=== PATIENT | female | born 1950 | race Caucasian/White ===

== ENCOUNTER → 2018-07-28 07:53 | Outpatient (CLI) | payer MEDICARE, SELFPAY ==
[2018-07-28 10:03] LABS: Alanine Aminotransferase 17 IU/L (9-52); Aspartate Aminotransferase 13 IU/L (14-36); Cholesterol 163 mg/dL (140-199); HDL Cholesterol 55 mg/dL (40-60); LDL Cholesterol Calculated 69 mg/dL (<100); Triglycerides 193 mg/dL (35-150)
[2018-07-28 10:30] LABS: TSH w/ Reflex to FT4 1.44 uIU/mL (0.47-4.68)
[2018-07-30 14:12] LABS: BUN Creatinine Ratio 18.8 (6-22); Blood Urea Nitrogen 15 mg/dL (7-17); Calcium 9.6 mg/dL (8.4-10.2); Carbon Dioxide 27 mmol/L (22-32); Chloride 98 mmol/L (98-107); Estimated Glomerular Filt Rate > 60.0 mL/min (>60); Glucose 104 mg/dL (80-110); HEMOLYSIS 18 (0-50); Potassium 3.7 mmol/L (3.4-5.1); Sodium 138 mmol/L (137-145)
== END ==
PROVIDERS: PCP Internal Medicine; Visit Provider Internal Medicine
DX: E78.2 Mixed hyperlipidemia (principal); F32.9 Major depressive disorder, single episode, unspecified
CPT/HCPCS: 36415; 80048; 80061; 84443; 84450; 84460

== ENCOUNTER → 2019-03-22 10:56 | Outpatient (CLI) | payer MEDICARE, SELFPAY ==
--- NOTE | 2019-03-22 | DI.MRI.S_ITS ---
PROCEDURE: MR LUMBAR SPINE WO CON INDICATIONS: Lumbago with sciatica, right side TECHNIQUE: Noncontrast sagittal T1 spin echo and T2 fast echo, coronal T2, sagittal STIR, axial T1 and T2 fast spin echo through the lumbar spine. COMPARISON: [facility], MR, MR LUMBAR SPINE WITHOUT CONTRAST, 08/07/2008, 19:30. [facility] [place], CR, XR LUMBAR SPINE WITH OLBIQUES PLUS FLEXION EXTENSION, 03/18/2019, 11:51. FINDINGS: Image quality: Excellent. Alignment and Curvature: There is loss of normal lumbar lordosis. There is mild diffuse leftward curvature of the lumbar spine. There is mild grade 1 retrolisthesis of L1 on L2, L2 on L3, L4 and L5, and L5 on S1. Bone Marrow: Marrow is of normal overall signal. No acute vertebral body compression fractures. Moderate reactive signal within the endplates adjacent to the L4-L5 and L5-S1 intervertebral discs. Mild reactive signal within the endplates adjacent to the L1-L2, L2-L3, and L3-L4 vertebral discs. Posterior L3 hemangioma. Spinal Cord: Conus medullaris terminates at the L1-L2 disc space level. Visualized cord demonstrates normal signal and size. Paraspinous Soft Tissues: No paravertebral masses. L1-L2: Moderate disc height loss and desiccation. Moderate diffuse disc bulge. Mild facet and ligament flavum hypertrophy. Mild epidural lipomatosis. Increased, mild canal stenosis. No foraminal stenosis. L2-L3: Moderate disc height loss and desiccation. Mild diffuse disc bulge. Mild facet and ligamentum flavum hypertrophy bilaterally. Mild epidural lipomatosis. Increased, mild canal stenosis. No foraminal stenosis. L3-L4: Mild disc height loss. Moderate disc desiccation. Mild diffuse disc bulge. Mild epidural lipomatosis. Mild facet and ligamentum flavum hypertrophy. Increased, mild canal stenosis. Increased, mild bilateral foraminal stenosis. L4-L5: Severe disc height loss and desiccation. Moderate diffuse disc bulge/osteophyte. Status post right hemilaminotomy, as before. Mild facet and ligament flavum hypertrophy. No significant canal stenosis. Mild bilateral foraminal stenosis. No change. L5-S1: Moderate disc height loss and desiccation. Moderate diffuse disc bulge. Mild facet hypertrophy bilaterally. Findings suggestive of left-sided hemilaminotomy. Mild bilateral facet hypertrophy. Mild canal stenosis. Increased, moderate subarticular foraminal stenosis bilaterally. IMPRESSION: 1. Multilevel degenerative disc and facet disease, as well as ligamentum flavum hypertrophy and epidural lipomatosis. 2. Mild multilevel canal stenoses. 3. Ultra level foraminal stenoses, worst at L5-S1 bilaterally where there are moderate foraminal stenoses present. Dictated by: Jong Kirkpatrick M.D. on 03/22/2019 at 12:04 Approved by: Jong Kirkpatrick M.D. on 03/22/2019 at 12:09
== END ==
PROVIDERS: PCP Internal Medicine; Visit Provider Physical Medicine & Rehabilitation Pain Medicine
DX: M51.16 Intervertebral disc disorders with radiculopathy, lumbar region (principal); M51.17 Intervertebral disc disorders with radiculopathy, lumbosacral region; M48.061 Spinal stenosis, lumbar region without neurogenic claudication; M48.07 Spinal stenosis, lumbosacral region; E88.2 Lipomatosis, not elsewhere classified
CPT/HCPCS: 72148

== ENCOUNTER 2019-12-09 16:44 | Emergency (ER) | payer MEDICARE, SELFPAY ==
[2019-12-09 16:57] VITALS: BP 185/82; PULSE 81; RESP 16; TEMP 36.9; O2SAT 99; BMI 38.0
[2019-12-09 17:06] VITALS: PULSE 73; O2SAT 97
[2019-12-09 17:07] VITALS: BP 174/78; PULSE 74; O2SAT 97
--- NOTE | 2019-12-09 17:27 | DI.US.S_ITS ---
PROCEDURE: US PERIPH VENOUS LOW EXTREM RT INDICATIONS: pain TECHNIQUE: Real-time imaging, as well as color and pulse Doppler interrogation, were performed of the lower extremity deep veins from the inguinal ligament to the popliteal fossa. COMPARISON: None. FINDINGS: The common femoral, femoral and popliteal veins are normally compressible, and free of intraluminal thrombus. Color and pulse Doppler demonstrate normal phasic intraluminal flow. There is normal augmentation response to distal compression maneuver. IMPRESSION: No sonographic evidence of deep venous thrombosis. Dictated by: Jose Rashid M.D. on 12/09/2019 at 18:13 Approved by: Jose Rashid M.D. on 12/09/2019 at 18:13
[2019-12-09 17:30] VITALS: BP 170/73; PULSE 71; O2SAT 97
[2019-12-09] MEDS: ACETAMINOPHEN 325 MG TABLET 650 MG PO (17:32)
[2019-12-09 18:00] VITALS: BP 176/79; PULSE 72; O2SAT 98
--- NOTE | 2019-12-09 18:56 | ED.EXTPRO ---
HPI - Extremity Problem General Chief complaint: Extremity Problem,Nontraumatic Stated complaint: RIGHT LEG PAIN Time Seen by Provider: 12/09/19 17:04 Source: patient Mode of arrival: Ambulatory Limitations: no limitations History of Present Illness HPI Narrative: Patient is 69-year-old female who presents with right leg pain ongoing since September. She says she it initially injured it while walking. Everyone kept thinking it was from her back she has chronic back pain she has been on prednisone a few times it has not helped. She does have longstanding prescription of Mentcle which he says usually lasts about 9 months however she has gone through a bottle in 2 months based on her knee. She is in physical therapy he was using a cane but now it has gotten worse and she now uses a walker. She has pain right around her right knee laterally and posteriorly. She has pain in her calf whenever she dorsi flexes. She denies any chest pain or shortness of breath. Related Data Home Medications Medication Instructions Recorded Confirmed albuterol sulfate [Ventolin HFA] 2 puff INH #0 10/29/16 atorvastatin [Lipitor] 20 mg PO HS #0 10/29/16 budesonide-formoterol [Symbicort] 1 inh INH BID #0 10/29/16 fluticasone furoate-vilanterol 1 puff INH #0 10/29/16 [Breo Ellipta] levocetirizine 5 mg PO QDAY #0 10/29/16 montelukast 10 mg PO QDAY #0 10/29/16 omeprazole 40 mg #0 10/29/16 theophylline 100 mg PO BID #0 10/29/16 triamterene-hydrochlorothiazid 1 cap PO QDAY #0 10/29/16 [Dyazide] Previous Rx's Medication Instructions Recorded prednisone 40 mg PO QDAY #14 tab 10/29/16 hydrocodone-acetaminophen [Mentcle] 1 tab PO Q6H PRN #10 tab 12/09/19 Allergies Allergy/AdvReac Type Severity Reaction Status Date / Time aspirin [ASPIRIN] Allergy Unknown Unverified 06/21/17 12:46 egg [EGG] Allergy Unknown Unverified 06/21/17 12:46 Penicillins [PENICILLINS] Allergy Unknown Unverified 06/21/17 12:46 shellfish derived Allergy Unknown Unverified 06/21/17 12:46 [SHELLFISH DERIVED] Review of Systems Review of Systems Narrative: GENERAL: Denies chills, fatigue, malaise, fever, sweats, travel HEENT: Denies sinus pain, ear pain, sore throat, difficulty swallowing, neck pain RESPIRATORY: Denies dyspnea, cough, wheezing, hemoptysis, sputum. CARDIOVASCULAR: Denies chest pain, palpitations, orthopnea, edema GASTROINTESTINAL: Denies nausea, vomiting, abdominal pain, diarrhea, constipation, melena. : Denies dysuria, frequency, incontinence, hematuria, urinary retention, flank pain. MUSCULOSKELETAL: See HPI SKIN: No rash, no erythema, no pruritus NEUROLOGIC: Denies weakness, dizziness, headache, numbness, change in speech, confusion PSYCHIATRIC: No concerning psychosocial issues. 12 point review of systems is negative except for those stated above and HPI Patient History Social History Smoking Status: Never smoker Smoking Status: Never smoker alcohol intake frequency: 0-2 drinks per day Substance Use Type: does not use Exam Initial Vital Signs Initial Vital Signs: Vital Signs Temperature 98.4 F 12/09/19 16:57 Pulse Rate 81 12/09/19 16:57 Respiratory Rate 16 12/09/19 16:57 Blood Pressure 185/82 H 12/09/19 16:57 Pulse Oximetry 99 12/09/19 16:57 GENERAL: Well-appearing, well-nourished and in no acute distress. HEENT: Head atraumatic,EOMI, pupils reactive, face symmetric, moist mucous membranes CARDIOVASCULAR: Regular rate and rhythm without murmurs, rubs or gallops. RESPIRATORY: Breath sounds equal bilaterally, no wheezes rales or rhonchi. ABDOMEN: Soft, nontender. Normoactive bowel sounds all 4 quadrants. No guarding or rebound. EXTREMITIES: Normal range of motion, no clubbing or edema. Neurovascularly intact Right knee is stable no significant calf swelling or erythema. NEUROLOGICAL: Alert and oriented x4. SKIN: Warm, dry, no laceration, no petechiae, no rashes or lesions. Course Orders Ordered: ED Orders 12/09/19 17:27 perip venous low extrem rt Stat Discontinued Medications Acetaminophen (Tylenol) 650 mg PO NOW ONE Stop: 12/09/19 17:28 Last Admin: 12/09/19 17:32 Dose: 650 mg Documented by: MMINOR Vital Signs Vital signs: Vital Signs - 8 hr 12/09/19 16:57 12/09/19 17:06 12/09/19 17:07 Temperature 98.4 F Pulse Rate 81 73 74 Respiratory Rate 16 Blood Pressure 185/82 H 174/78 H Pulse Oximetry 99 97 97 12/09/19 17:30 12/09/19 18:00 Temperature Pulse Rate 71 72 Respiratory Rate Blood Pressure 170/73 H 176/79 H Pulse Oximetry 97 98 MDM - Extremity (Nontraumatic) Imaging Data US - DVT: Radiologist's Impression: PROCEDURE: US PERIPH VENOUS LOW EXTREM RT INDICATIONS: pain TECHNIQUE: Real-time imaging, as well as color and pulse Doppler interrogation, were performed of the lower extremity deep veins from the inguinal ligament to the popliteal fossa. COMPARISON: None. FINDINGS: The common femoral, femoral and popliteal veins are normally compressible, and free of intraluminal thrombus. Color and pulse Doppler demonstrate normal phasic intraluminal flow. There is normal augmentation response to distal compression maneuver. IMPRESSION: No sonographic evidence of deep venous thrombosis. Dictated by: Jose Rashid M.D. on 12/09/2019 at 18:13 Approved by: Jose Rashid M.D. on 12/09/2019 at 18:13 [facility] Narrative Medical decision making narrative: Patient is negative for DVT. At this time it does not appear to be back issues, no DVT. Recommend outpatient MRI. Patient is given a small prescription for hydrocodone and will require refill by her PCP Discharge Plan Departure Patient Disposition: Home Clinical Impression: Strain of right knee Qualifiers: Encounter type: initial encounter Qualified Code(s): S86.911A - Strain of unspecified muscle(s) and tendon(s) at lower leg level, right leg, initial encounter Discharge Date/Time: 12/09/19 19:11 Instructions: DI for Knee Sprain Activity Restrictions/Additional Instructions: *You have been diagnosed with right knee strain *What to do: At this time I recommend that he get an outpatient MRI of the your knee. *Continue to take medications as directed Mentcle 1 tablet every 6 hours if needed for severe pain *Follow up with your primary care provider in 2-3 days *Return to ER if you should have increasing pain weakness numbness tingling shortness of breath or any new, worsening or concerning symptoms Prescriptions: New hydrocodone-acetaminophen [Mentcle] 5-325 mg tablet 1 tab PO Q6H PRN (Reason: pain) Qty: 10 RF: 0 No Action fluticasone furoate-vilanterol [Breo Ellipta] 200 MCG/25 MCG blister with device 1 puff INH Qty: 0 RF: 0 omeprazole 40 MG capsule,delayed release(DR/EC) 40 mg Qty: 0 RF: 0 montelukast 10 MG tablet 10 mg PO QDAY Qty: 0 RF: 0 albuterol sulfate [Ventolin HFA] 90 MCG/PUFF HFA aerosol inhaler 2 puff INH Qty: 0 RF: 0 levocetirizine 5 MG tablet 5 mg PO QDAY Qty: 0 RF: 0 atorvastatin [Lipitor] 20 MG tablet 20 mg PO HS Qty: 0 RF: 0 theophylline 100 MG tablet extended release 12 hr 100 mg PO BID Qty: 0 RF: 0 triamterene-hydrochlorothiazid [Dyazide] 37.5 MG/25 MG capsule 1 cap PO QDAY Qty: 0 RF: 0 budesonide-formoterol [Symbicort] 160 MCG/4.5 MCG HFA aerosol inhaler 1 inh INH BID Qty: 0 RF: 0 prednisone 20 MG tablet 40 mg PO QDAY Qty: 14 RF: 0 Referrals: Rosalie Lassiter MD [Primary Care Provider] -
== END 2019-12-09 19:11 | disposition home or self-care (01) ==
PROVIDERS: Emergency Provider Emergency Medicine; PCP Internal Medicine
DX: S86.911A Strain of unspecified muscle(s) and tendon(s) at lower leg level, right leg, initial encounter (principal)
CPT/HCPCS: 93971; 99283

== ENCOUNTER → 2019-12-13 08:41 | Outpatient (CLI) | payer MEDICARE, SELFPAY ==
[2019-12-13 09:53] LABS: Erythrocyte Sedimentation Rate 6 MM/HR (0-20)
[2019-12-13 10:00] LABS: Alanine Aminotransferase 13 IU/L (<35); Albumin 4.5 g/dL (3.5-5.0); Albumin Globulin Ratio 1.6 (1.0-2.8); Alkaline Phosphatase 53 U/L (38-126); Aspartate Aminotransferase 18 IU/L (14-36); BUN Creatinine Ratio 24.7 (6-22); Bilirubin Total 0.6 mg/dL (0.2-1.3); Blood Urea Nitrogen 18 mg/dL (7-17); C-Reactive Protein Quant < 0.5 mg/dL (<1.0); Calcium 9.5 mg/dL (8.4-10.2); Carbon Dioxide 33 mmol/L (22-32); Chloride 99 mmol/L (98-107); Cholesterol 151 mg/dL (140-199); Creatine Kinase 33 U/L (30-135); Estimated Glomerular Filt Rate > 60.0 mL/min (>60); Globulin 2.9 g/dL (1.7-4.1); Glucose 102 mg/dL (80-110); HDL Cholesterol 54 mg/dL (40-60); HEMOLYSIS < 15 (0-50); LDL Cholesterol Calculated 61 mg/dL (<100); Potassium 3.3 mmol/L (3.4-5.1); Sodium 138 mmol/L (137-145); Total Protein 7.4 g/dL (6.3-8.2); Triglycerides 178 mg/dL (35-150)
== END ==
PROVIDERS: PCP Internal Medicine; Referring Provider Internal Medicine; Visit Provider Internal Medicine
DX: M79.604 Pain in right leg (principal); E78.2 Mixed hyperlipidemia; M25.561 Pain in right knee
CPT/HCPCS: 36415; 80053; 80061; 82550; 85651; 86140

== ENCOUNTER → 2019-12-18 17:19 | Outpatient (CLI) | payer MEDICARE, SELFPAY ==
--- NOTE | 2019-12-18 | DI.MRI.S_ITS ---
PROCEDURE: MR KNEE RT WO CON INDICATIONS: Pain in right knee TECHNIQUE: Noncontrast sagittal PD fast spin echo and T2 fast spin echo with fat saturation, sagittal 3-D FLASH with fat saturation; coronal T1 spin echo and PD fast spin echo with fat saturation, and axial PD fast spin echo with fat saturation through the knee. COMPARISON: [facility] [place], CR, XR KNEE ARTHRITIC SERIES RT, 12/09/2019, 15:58. FINDINGS: Image quality: There is mild motion artifact. Menisci: There is mild degenerative signal within the body of the medial meniscus extending to the inferior articular surface compatible with mild degenerative tearing. The lateral meniscus also demonstrates mild degenerative signal primarily within the body which extends to the inferior articular surface and free edge compatible with mild degenerative tearing. The meniscal root ligaments appear intact. Cruciate ligaments: The anterior and posterior cruciate ligaments appear intact. Medial structures: The medial collateral ligament appears intact. The semimembranosus tendon insertions and meniscocapsular junction appear intact. Visualized portions of the pes anserinus tendons appear intact without associated bursal fluid collections. Lateral structures: The lateral collateral ligament, long and short heads of the biceps femoris tendon appear intact. The popliteus tendon appears intact. Iliotibial band appears normal. Anterior structures: The quadriceps and patellar tendons appear intact. Patellar alignment is normal. No femoral trochlear dysplasia or ventral trochlear prominence. No edema in the infrapatellar fat pad. Bones and cartilage: No bone marrow contusions or fractures. There is minimal osteophytosis. Mild cartilage thinning is demonstrated in the medial compartment with mild superficial chondral fraying. There is also mild superficial chondral fraying in the lateral compartment. In the patellofemoral compartment, there is mild cartilage thinning with superficial chondral fissuring along the patella. Joint space: There is physiologic knee joint fluid. There is trace fluid in the expected region of a Berrios's cyst. Normal appearing synovial plicae are incidentally noted. IMPRESSION: 1. Mild degenerative tearing in the medial and lateral menisci. 2. Mild tricompartmental chondral degeneration. Dictated by: Demond Mata M.D. on 12/18/2019 at 18:52 Approved by: Demond Mata M.D. on 12/18/2019 at 18:55
== END ==
PROVIDERS: PCP Internal Medicine; Referring Provider Internal Medicine; Visit Provider Internal Medicine
DX: M25.561 Pain in right knee (principal); M23.261 Derangement of other lateral meniscus due to old tear or injury, right knee; M23.231 Derangement of other medial meniscus due to old tear or injury, right knee; M17.11 Unilateral primary osteoarthritis, right knee
CPT/HCPCS: 73721

== ENCOUNTER → 2020-03-27 13:14 | Outpatient (CLI) | payer MEDICARE, SELFPAY ==
[2020-03-27] MEDS: COVID-19 VACC(MODERNA-1)/PF 100 MCG/0.5 ML VIAL IM (13:25)
== END ==
PROVIDERS: PCP Internal Medicine; Visit Provider Internal Medicine
DX: Z23 Encounter for immunization (principal)
CPT/HCPCS: 0011A; 91301

== ENCOUNTER → 2020-04-24 13:11 | Outpatient (CLI) | payer MEDICARE, SELFPAY ==
[2020-04-24] MEDS: COVID-19 VACC #2, MRNA(MOD) 100 MCG/0.5 ML VIAL IM (13:21)
== END ==
PROVIDERS: PCP Internal Medicine; Visit Provider Internal Medicine
DX: Z23 Encounter for immunization (principal)
CPT/HCPCS: 0012A; 91301

== ENCOUNTER → 2020-05-19 18:54 | Outpatient (ROUT) | payer OTHER, SELFPAY ==
[2020-05-19 19:35] LABS: Alanine Aminotransferase 13 IU/L (<35); Albumin 4.7 g/dL (3.5-5.0); Albumin Globulin Ratio 1.6 (1.0-2.8); Alkaline Phosphatase 53 U/L (38-126); Aspartate Aminotransferase 19 IU/L (14-36); BUN Creatinine Ratio 18.4 (6-22); Bilirubin Total 0.3 mg/dL (0.2-1.3); Blood Urea Nitrogen 18 mg/dL (7-17); Calcium 10.5 mg/dL (8.4-10.2); Carbon Dioxide 30 mmol/L (22-32); Chloride 98 mmol/L (98-107); Estimated Glomerular Filt Rate 56.3 mL/min (>60); Globulin 2.9 g/dL (1.7-4.1); Glucose 120 mg/dL (80-110); HEMOLYSIS 22 (0-50); Potassium 3.9 mmol/L (3.4-5.1); Sodium 137 mmol/L (137-145); Total Protein 7.6 g/dL (6.3-8.2)
[2020-05-19 19:52] LABS: Add Manual Diff / Slide Review NO; Basophils Absolute Auto 100 /uL (0-100); Basophils Percent Auto 0.9 % (0-2); Eosinophils Absolute Auto 400 /uL (0-450); Eosinophils Percent Auto 3.1 % (2-4); Hematocrit 46.7 % (36-46); Hemoglobin 15.4 g/dL (12.0-16.0); Lymphocytes Absolute Auto 2800 /uL (1100-4500); Lymphocytes Percent Auto 24.3 % (25-40); Mean Corpuscular Volume 87.7 fL (80-100); Monocytes Absolute Auto 1000 /uL (0-900); Monocytes Percent Auto 8.9 % (3-14); Neutrophils Absolute Auto 7200 /uL (1500-7000); Neutrophils Percent Auto 62.8 % (50-75); Platelet Count 268 X10^3/uL (150-400); Red Blood Cell Count 5.33 X10^6/uL (4.0-5.2); Red Cell Distribution Width 12.7 % (11.6-14.8); White Blood Cell Count 11.4 X10^3/uL (4.5-11.0)
[2020-05-19 20:11] LABS: TSH w/ Reflex to FT4 1.99 uIU/mL (0.47-4.68)
[2020-05-19 20:22] LABS: Vitamin B12 > 1000 pg/mL (239-931)
== END ==
PROVIDERS: PCP Internal Medicine; Visit Provider Internal Medicine
DX: R53.82 Chronic fatigue, unspecified (principal)
CPT/HCPCS: 80053; 82607; 84443; 85025

== ENCOUNTER → 2021-07-08 07:52 | Outpatient (CLI) | payer MEDICARE, SELFPAY ==
[2021-07-08 09:12] LABS: Influenza A - CEPHEID Flu A NEGATIVE (NEGATIVE); Influenza B - CEPHEID Flu B NEGATIVE (NEGATIVE)
[2021-07-08 09:17] LABS: COVID-19 CEPHEID PCR (VTM/NP) Negative (Negative)
== END ==
PROVIDERS: PCP Internal Medicine; Visit Provider Nurse Practitioner Family
DX: R05.9 Cough, unspecified (principal)
CPT/HCPCS: 0240U

== ENCOUNTER → 2021-07-08 08:01 | Outpatient (CLI) | payer MEDICARE, SELFPAY ==
--- NOTE | 2021-07-08 08:04 | DI.RAD.S_ITS ---
PROCEDURE: XR CHEST 2V INDICATIONS: cough TECHNIQUE: 2 views of the chest were acquired. COMPARISON: None. FINDINGS: Surgical changes and devices: None. Lungs and pleura: Lungs are clear. No pleural effusions or pneumothorax. Mediastinum: Mediastinal contours are normal. Heart size is normal. Bones and chest wall: No suspicious bony abnormalities. Soft tissues appear unremarkable. IMPRESSION: No acute cardiopulmonary pathology. Dictated by: Jayy Mora M.D. on 07/08/2021 at 8:29 Approved by: Jayy Mora M.D. on 07/08/2021 at 8:33
== END ==
PROVIDERS: Referring Provider Nurse Practitioner Family; Visit Provider Nurse Practitioner Family
DX: J45.21 Mild intermittent asthma with (acute) exacerbation (principal); R05.9 Cough, unspecified; Z20.822 Contact with and (suspected) exposure to COVID-19
CPT/HCPCS: 0240U; 71046

== ENCOUNTER 2021-07-09 20:15 | Observation (INO) | payer MEDICARE, SELFPAY ==
[2021-07-09] VITALS (11 sets, daily range): BP systolic 125–192; BP diastolic 60–83; PULSE 89–119; RESP 16–35; TEMP 36.9; O2SAT 92–97; BMI 38.2
--- NOTE | 2021-07-09 20:26 | DI.RAD.S_ITS ---
PROCEDURE: XR CHEST 2V INDICATIONS: SOB TECHNIQUE: 2 views of the chest were acquired. COMPARISON: [facility], CR, XR CHEST 2V, 07/08/2021, 7:53. FINDINGS: Surgical changes and devices: None. Lungs and pleura: Horizontal bibasilar opacities, right greater than left. No pleural effusions. Mediastinum: Mediastinal contours are normal. Heart size is normal. Bones and chest wall: No suspicious bony abnormalities. Soft tissues appear unremarkable. IMPRESSION: 1. Bibasilar opacities most likely atelectatic change. Otherwise clear lungs. Dictated by: Nisha Desir M.D. on 07/09/2021 at 21:40 Approved by: Nsiha Desir M.D. on 07/09/2021 at 21:42
--- NOTE | 2021-07-09 20:30 | ED.SOB ---
HPI - SOB/Dyspnea General Chief Complaint: Shortness of Breath/Dyspnea Stated Complaint: SOB ASTHMA Time Seen by Provider: 07/09/21 20:23 History of Present Illness HPI Narrative: 71-year-old female nonsmoker with history of asthma and hyperlipidemia presents with a chief complaint of ongoing cough and shortness of breath for the past 4 days. She denies any fever or chills. She states her cough seems to be worse with deep breath. She denies any blood in her sputum. She has been using her inhalers, nebulizers and steroids as well as Tessalon Perles with little to no relief. She denies any recent travel, injury, history of blood clot, pain or swelling in either her lower extremities. She denies any exertional discomfort but does have sharp pain with cough. She has had no GI symptoms such as nausea, vomiting or diarrhea. She denies any dysuria, frequency or urgency. Related Data Home Medications Medication Instructions Recorded Confirmed albuterol sulfate 90 mcg/actuation 2 puff INH #0 10/29/16 07/08/21 aerosol inhaler (Ventolin HFA) atorvastatin 20 mg tablet (Lipitor) 20 mg PO HS #0 10/29/16 07/08/21 budesonide-formoterol HFA 160 1 inh INH BID #0 10/29/16 07/08/21 mcg-4.5 mcg/actuation aerosol inhaler (Symbicort) fluticasone furoate 200 1 puff INH #0 10/29/16 07/08/21 mcg-vilanterol 25 mcg/dose inhalation powder (Breo Ellipta) levocetirizine 5 mg tablet 5 mg PO QDAY #0 10/29/16 07/08/21 montelukast 10 mg tablet 10 mg PO QDAY #0 10/29/16 07/08/21 omeprazole 40 mg capsule,delayed 40 mg #0 10/29/16 07/08/21 release theophylline 100 mg 100 mg PO BID #0 10/29/16 07/08/21 tablet,extended release,12 hr triamterene 37.5 1 cap PO QDAY #0 10/29/16 07/08/21 mg-hydrochlorothiazide 25 mg capsule (Dyazide) Previous Rx's Medication Instructions Recorded prednisone 20 mg tablet 40 mg PO QDAY #14 tab 10/29/16 hydrocodone 5 mg-acetaminophen 325 1 tab PO Q6H PRN #10 tab 12/09/19 mg tablet ([place]) albuterol sulfate 1.25 mg/3 mL 1.25 mg (3 mL) INHALATION Q4-6H 07/08/21 solution for nebulization PRN #75 ml benzonatate 100 mg capsule 100 mg PO BID PRN #20 cap 07/08/21 prednisone 50 mg tablet 50 mg PO DAILY 5 Days #5 tab 07/08/21 Allergies Allergy/AdvReac Type Severity Reaction Status Date / Time aspirin [ASPIRIN] Allergy Unknown Verified 07/09/21 20:32 egg [EGG] Allergy Unknown Verified 07/09/21 20:32 Penicillins [PENICILLINS] Allergy Unknown Verified 07/09/21 20:32 shellfish derived Allergy Unknown Verified 07/09/21 20:32 [SHELLFISH DERIVED] Review of Systems Review of Systems Narrative: GENERAL: Denies chills, fatigue, malaise, fever, sweats. HEENT: Denies sinus pain, ear pain, sore throat, difficulty swallowing, dizziness. RESPIRATORY: See HPI CARDIOVASCULAR: See HPI GASTROINTESTINAL: Denies nausea, vomiting, abdominal pain, diarrhea, constipation, melena. : Denies dysuria, frequency, incontinence, hematuria, urinary retention. MUSCULOSKELETAL: denies weakness, joint pain, or bony pain SKIN: Denies rash, skin lesions, or other NEUROLOGIC: Denies weakness, headache, numbness, change in speech, confusion, seizures, incoordination. PSYCHIATRIC: No concerning psychosocial issues. 12 point review of systems is negative except for those stated above Patient History Social History Smoking Status: Never smoker Smoking Status: Never smoker alcohol intake frequency: 0-2 drinks per day Substance Use Type: does not use Exam Narrative Exam Narrative: GENERAL: [70 year old patient appears stated age. Well-developed patient, in mild distress. Persistent dry and hacking cough HEAD: Atraumatic. Normocephalic. EYES: Pupils equal round and reactive. Extraocular motions intact. No scleral icterus. No injection or drainage. ENT: Nose without bleeding, purulent drainage. Throat without erythema, tonsillar hypertrophy or exudate. Airway patent. NECK: Trachea midline. Non tender CARDIOVASCULAR: Regular rate and rhythm without murmurs, gallops, or rubs. RESPIRATORY: Decreased breath sounds bilaterally with prolonged expiratory phase, no obvious wheezes, rales or rhonchi GASTROINTESTINAL: Abdomen soft, non-tender, nondistended. EXTREMITIES: No edema or joint tenderness. BACK: Nontender without deformity or crepitance. No flank tenderness. NEURO: AOx3. SKIN: No rash or erythema of visible areas Initial Vital Signs Initial Vital Signs: Vital Signs Temperature 98.5 F 07/09/21 20:15 Pulse Rate 119 H 07/09/21 20:15 Respiratory Rate 34 H 07/09/21 20:15 Blood Pressure 192/83 H 07/09/21 20:15 Pulse Oximetry 97 07/09/21 20:15 Course Orders Ordered: ED Orders 07/09/21 20:26 XR chest 2V Stat COVID19 -Nasal RAPID/Pre-Proc Stat EKG-12 Lead Stat 07/09/21 20:37 Measure peak expiratory flow PRE TREATMENT 07/09/21 21:00 Covid-19 + FLU A/B by PCR Stat 07/09/21 21:08 Complete Blood Count AUTO DIFF Stat Comprehensive Metabolic Panel Stat D Dimer Stat Lactate (Lactic Acid) Stat Lipase Stat Magnesium Stat NT-proBNP (BNP-Adult 18+) Stat Troponin & CK Cardiac Panel Stat 07/09/21 21:20 Blood Culture Stat 07/09/21 22:16 CT angio chest PE protocol Stat 07/09/21 23:39 Troponin & CK Cardiac Panel Stat 07/09/21 23:47 EKG-12 Lead Stat Discontinued Medications Albuterol/Ipratropium (Albuterol/Ipratropium 3 Ml Ampul) 3 ml INH NOW ONE Stop: 07/09/21 20:26 Last Admin: 07/09/21 21:00 Dose: 3 ml Documented by: [email or web address] Furosemide (Furosemide 40 Mg/4 Ml Vial) 40 mg IV NOW ONE Stop: 07/09/21 23:48 Last Admin: 07/10/21 00:17 Dose: 40 mg Documented by: Sodium Chloride (Normal Saline 0.9%) 1,000 mls @ 1,000 mls/hr IV BOLUS ONE Stop: 07/09/21 21:24 Last Admin: 07/09/21 21:12 Dose: 1,000 mls/hr Documented by: KPETERSON Methylprednisolone (Methylprednisolone 125 Mg/2 Ml Vial) 125 mg IV NOW ONE Stop: 07/09/21 20:26 Last Admin: 07/09/21 20:55 Dose: 125 mg Documented by: WILL Consultations Consultation #1: Discussed with on-call Cardiology, given her ongoing fatigue and shortness of breath with exertional dyspnea, findings on labs including elevated BNP, imaging noting cardiomegaly and pericardial effusion they recommend gentle diuresis and hospitalization for ongoing evaluation and echocardiogram Consultation #2: Hospitalist happy to accept Vital Signs Vital signs: Vital Signs - 8 hr 07/09/21 20:15 07/09/21 20:22 07/09/21 20:30 Temperature 98.5 F Pulse Rate 119 H 114 H 105 H Respiratory Rate 34 H 28 H 35 H Blood Pressure 192/83 H 192/83 H Pulse Oximetry 97 97 96 07/09/21 21:00 07/09/21 21:30 07/09/21 22:00 Temperature Pulse Rate 100 H 102 H 99 H Respiratory Rate 16 18 20 Blood Pressure Pulse Oximetry 94 93 92 07/09/21 22:08 07/09/21 22:33 07/09/21 23:03 Temperature Pulse Rate 100 H 105 H 104 H Respiratory Rate 29 H 24 Blood Pressure 125/60 Pulse Oximetry 95 94 07/09/21 23:05 07/09/21 23:30 07/10/21 00:00 Temperature Pulse Rate 99 H 89 92 H Respiratory Rate 27 H 17 25 H Blood Pressure 146/72 H 139/65 148/66 H Pulse Oximetry 95 92 94 MDM - SOB/Dyspnea Lab Data Result diagrams: 07/09/21 21:08 07/09/21 21:08 Labs: Lab Results 07/09/21 07/09/21 07/09/21 Range/Units 21:00 21:08 21:08 WBC 10.4 (4.5-11.0) X10^3/uL RBC 4.56 (4.0-5.2) X10^6/uL Hgb 13.1 (12.0-16.0) g/dL Hct 39.2 (36-46) % MCV 86.0 (80-100) fL MCH 28.8 (26-34) PG MCHC 33.5 (30-36) % RDW 13.2 (11.6-14.8) % Plt Count 272 (150-400) X10^3/uL Neut % (Auto) 68.9 (50-75) % Lymph % (Auto) 16.9 L (25-40) % Whitley % (Auto) 13.5 (3-14) % Eos % (Auto) 0.1 L (2-4) % Baso % (Auto) 0.6 (0-2) % Neut # (Auto) 7200 H (0700-9076) /uL Lymph # (Auto) 1800 (0338-1578) /uL Whitley # (Auto) 1400 H (0-900) /uL Eos # (Auto) 0 (0-450) /uL Baso # (Auto) 100 (0-100) /uL D-Dimer (<230) ng/mL Sodium 140 (137-145) mmol/L Potassium 3.7 (3.4-5.1) mmol/L Chloride 100 (98-107) mmol/L Carbon Dioxide 30 (22-32) mmol/L BUN 20 H (7-17) mg/dL Creatinine 0.78 (0.52-1.04) mg/dL Estimated GFR > 60 (>60) mL/min BUN/Creatinine Ratio 25.6 H (6-22) Glucose 125 H (80-110) mg/dL Lactate (0.7-2.1) mmol/L Calcium 9.4 (8.4-10.2) mg/dL Magnesium 1.9 (1.6-2.3) mg/dL Total Bilirubin 0.4 (0.2-1.3) mg/dL AST 29 (14-36) IU/L ALT 18 (<35) IU/L Alkaline Phosphatase 54 (38-126) U/L Total Creatine Kinase 372 H (30-135) U/L CK-MB (CK-2) 2.30 (<2.37) ng/mL CK-MB (CK-2) Rel Index 0.6 L (1.5-5.0) % Troponin I 0.014 (0.01-0.034) ng/mL NT-Pro-B Natriuret Pep 380 H (<125) pg/mL Total Protein 7.1 (6.3-8.2) g/dL Albumin 4.1 (3.5-5.0) g/dL Globulin 3.0 (1.7-4.1) g/dL Albumin/Globulin Ratio 1.4 (1.0-2.8) Lipase 41 (23-300) U/L SARS-CoV-2 (PCR) Negative (Negative) Influenza A (RT-PCR) Flu a negative (NEGATIVE) Influenza B (RT-PCR) Flu b negative (NEGATIVE) 07/09/21 07/09/21 07/09/21 Range/Units 21:08 21:08 23:39 WBC (4.5-11.0) X10^3/uL RBC (4.0-5.2) X10^6/uL Hgb (12.0-16.0) g/dL Hct (36-46) % MCV (80-100) fL MCH (26-34) PG MCHC (30-36) % RDW (11.6-14.8) % Plt Count (150-400) X10^3/uL Neut % (Auto) (50-75) % Lymph % (Auto) (25-40) % Whitley % (Auto) (3-14) % Eos % (Auto) (2-4) % Baso % (Auto) (0-2) % Neut # (Auto) (5111-1153) /uL Lymph # (Auto) (1531-1915) /uL Whitley # (Auto) (0-900) /uL Eos # (Auto) (0-450) /uL Baso # (Auto) (0-100) /uL D-Dimer < 200 (<230) ng/mL Sodium (137-145) mmol/L Potassium (3.4-5.1) mmol/L Chloride (98-107) mmol/L Carbon Dioxide (22-32) mmol/L BUN (7-17) mg/dL Creatinine (0.52-1.04) mg/dL Estimated GFR (>60) mL/min BUN/Creatinine Ratio (6-22) Glucose (80-110) mg/dL Lactate 2.8 H 1.3 (0.7-2.1) mmol/L Calcium (8.4-10.2) mg/dL Magnesium (1.6-2.3) mg/dL Total Bilirubin (0.2-1.3) mg/dL AST (14-36) IU/L ALT (<35) IU/L Alkaline Phosphatase (38-126) U/L Total Creatine Kinase (30-135) U/L CK-MB (CK-2) (<2.37) ng/mL CK-MB (CK-2) Rel Index (1.5-5.0) % Troponin I (0.01-0.034) ng/mL NT-Pro-B Natriuret Pep (<125) pg/mL Total Protein (6.3-8.2) g/dL Albumin (3.5-5.0) g/dL Globulin (1.7-4.1) g/dL Albumin/Globulin Ratio (1.0-2.8) Lipase (23-300) U/L SARS-CoV-2 (PCR) (Negative) Influenza A (RT-PCR) (NEGATIVE) Influenza B (RT-PCR) (NEGATIVE) 07/09/21 Range/Units 23:39 WBC (4.5-11.0) X10^3/uL RBC (4.0-5.2) X10^6/uL Hgb (12.0-16.0) g/dL Hct (36-46) % MCV (80-100) fL MCH (26-34) PG MCHC (30-36) % RDW (11.6-14.8) % Plt Count (150-400) X10^3/uL Neut % (Auto) (50-75) % Lymph % (Auto) (25-40) % Whitley % (Auto) (3-14) % Eos % (Auto) (2-4) % Baso % (Auto) (0-2) % Neut # (Auto) (0603-6785) /uL Lymph # (Auto) (6792-2146) /uL Whitley # (Auto) (0-900) /uL Eos # (Auto) (0-450) /uL Baso # (Auto) (0-100) /uL D-Dimer (<230) ng/mL Sodium (137-145) mmol/L Potassium (3.4-5.1) mmol/L Chloride (98-107) mmol/L Carbon Dioxide (22-32) mmol/L BUN (7-17) mg/dL Creatinine (0.52-1.04) mg/dL Estimated GFR (>60) mL/min BUN/Creatinine Ratio (6-22) Glucose (80-110) mg/dL Lactate (0.7-2.1) mmol/L Calcium (8.4-10.2) mg/dL Magnesium (1.6-2.3) mg/dL Total Bilirubin (0.2-1.3) mg/dL AST (14-36) IU/L ALT (<35) IU/L Alkaline Phosphatase (38-126) U/L Total Creatine Kinase 387 H (30-135) U/L CK-MB (CK-2) 2.19 (<2.37) ng/mL CK-MB (CK-2) Rel Index 0.6 L (1.5-5.0) % Troponin I 0.014 (0.01-0.034) ng/mL NT-Pro-B Natriuret Pep (<125) pg/mL Total Protein (6.3-8.2) g/dL Albumin (3.5-5.0) g/dL Globulin (1.7-4.1) g/dL Albumin/Globulin Ratio (1.0-2.8) Lipase (23-300) U/L SARS-CoV-2 (PCR) (Negative) Influenza A (RT-PCR) (NEGATIVE) Influenza B (RT-PCR) (NEGATIVE) Urine Dip Bedside Urine Glucose Negative Bedside Urine Bilirubin - Negative Bedside Urine Ketone - Negative Urine Specific [place] 1.020 Bedside Urine Occult Blood +/- Bedside Urine pH 6.0 Bedside Urine Protein +/- 15 Bedside Urine Urobilinogen - Negative Bedside Urine Nitrite - Negative Bedside Urine Leukocytes - Negative Esterase Imaging Data CT scan - chest: Radiologist's Impression: [address] [address] [address] Scan Report Signed Patient: Maria Ines Ferguson MR#: [id number] : 1950 Acct:[id number] Age/Sex: 71 / F Date of Service: 07/09/21 Loc: ED Accession Number: [id number] ?? Procedure: CT angio chest PE protocol Ordering Provider: Christophe Coleman D.O. PROCEDURE:? CT ANGIO CHEST PE PROTOCOL ? INDICATIONS:? SOB, chest pain, dry cough, tachycardia ? TECHNIQUE:? After the administration of intravenous contrast, 2 mm thick sections acquired from the pulmonary apices to the posterior costophrenic angles.? 3-dimensional maximum intensity projection (MIP) coronal and sagittal reformats were then acquired through the thorax.? For radiation dose reduction, the following was used:? automated exposure control, adjustment of mA and/or kV according to patient size.? ? COMPARISON:? None. ? FINDINGS:? Image quality:? Adequate.? ? Pulmonary arteries:? Pulmonary arteries are normal in size, and demonstrate no intraluminal filling defects to suggest central pulmonary embolism.? ? Lungs and pleura:? Central and peripheral airways are patent.? There is mild mid and moderate lower lung bronchial wall thickening and lower lobe bronchial narrowing.? There are low lung volumes, and mild posterior atelectatic changes. ? Mediastinum:? Heart size is mildly enlarged, with a small pericardial effusion.? No mediastinal or hilar adenopathy.? Thoracic aorta is normal in caliber and enhancement.? Esophagus is normal in caliber, without hiatal hernia.? ? Bones and chest wall:? No suspicious bony lesions.? Ribs and thoracic spine appear intact throughout.? Thyroid gland is normal.? No axillary or supraclavicular adenopathy.? Bilateral breast implants. ? Abdomen:? Probable surgical changes of partial left hepatectomy.? Visualized upper abdominal solid organs appear otherwise normal in the early arterial phase of enhancement.? ? IMPRESSION:? ? 1. No visible pulmonary embolus. ? 2. Mild cardiomegaly and pericardial effusion. ? 3. Mild bronchial wall thickening may indicate bronchitis. ? ? ? Dictated by: Nisha Desir M.D. on 07/09/2021 at 23:24 ? ? Approved by: Nisha Desir M.D. on 07/09/2021 at 23:29 ? ECG Data Interpretation: EKG is sinus tachycardia with regular rhythm rate [107 ] and free of any signs of ischemia or ectopy. No ST segmental elevation or depression. No T wave inversions MDM Narrative Medical decision making narrative: Patient with ongoing shortness of breath and fatigue despite increased use of bronchodilators and steroids with visits to primary care provider. Initially lactate was significantly elevated and patient was tachycardic and tachypneic, that has resolved some but patient continues to have an elevated heart rate over 100, increased work of breathing and exertion results and shortness of breath and oxygen levels down to 90. She has a newly discovered pericardial effusion, cardiomegaly and increased BNP and requires hospitalization for diuresis and ongoing evaluation with at least an echocardiogram. Discharge Plan Departure Patient Disposition: Admitted as Observation Clinical Impression: Congestive heart failure Admit Date/Time: 07/10/21 00:27 Admit Provider: Keya Baldwin
[2021-07-09] MEDS: methylPREDNISolone 125 MG/2 ML VIAL IV (20:55)
[2021-07-09] MEDS: ALBUTEROL/IPRATROPIUM 3 ML AMPUL INH (21:00)
[2021-07-09] MEDS: SODIUM CHLORIDE 0.9% 1,000 ML 1000 ML IV (21:12)
[2021-07-09 21:33] LABS: Add Manual Diff / Slide Review NO; Basophils Absolute Auto 100 /uL (0-100); Basophils Percent Auto 0.6 % (0-2); Eosinophils Absolute Auto 0 /uL (0-450); Eosinophils Percent Auto 0.1 % (2-4); Hematocrit 39.2 % (36-46); Hemoglobin 13.1 g/dL (12.0-16.0); Lymphocytes Absolute Auto 1800 /uL (1100-4500); Lymphocytes Percent Auto 16.9 % (25-40); Mean Corpuscular HGB Conc 33.5 % (30-36); Mean Corpuscular Hemoglobin 28.8 PG (26-34); Monocytes Absolute Auto 1400 /uL (0-900); Monocytes Percent Auto 13.5 % (3-14); Neutrophils Absolute Auto 7200 /uL (1500-7000); Neutrophils Percent Auto 68.9 % (50-75); Platelet Count 272 X10^3/uL (150-400); Red Blood Cell Count 4.56 X10^6/uL (4.0-5.2); Red Cell Distribution Width 13.2 % (11.6-14.8); White Blood Cell Count 10.4 X10^3/uL (4.5-11.0)
[2021-07-09 21:45] LABS: Alanine Aminotransferase 18 IU/L (<35); Albumin 4.1 g/dL (3.5-5.0); Albumin Globulin Ratio 1.4 (1.0-2.8); Alkaline Phosphatase 54 U/L (38-126); Aspartate Aminotransferase 29 IU/L (14-36); BUN Creatinine Ratio 25.6 (6-22); Bilirubin Total 0.4 mg/dL (0.2-1.3); Blood Urea Nitrogen 20 mg/dL (7-17); Calcium 9.4 mg/dL (8.4-10.2); Carbon Dioxide 30 mmol/L (22-32); Chloride 100 mmol/L (98-107); Creatine Kinase 372 U/L (30-135); D Dimer < 200 ng/mL (<230); Estimated Glomerular Filt Rate > 60 mL/min (>60); Glucose 125 mg/dL (80-110); HEMOLYSIS < 15 (0-50); Lactate (Lactic Acid) 2.8 mmol/L (0.7-2.1); Lipase 41 U/L (23-300); Magnesium 1.9 mg/dL (1.6-2.3); Potassium 3.7 mmol/L (3.4-5.1); Sodium 140 mmol/L (137-145); Total Protein 7.1 g/dL (6.3-8.2)
[2021-07-09 21:56] LABS: NT-proBNP (BNP-Adult 18+) 380 pg/mL (<125); Troponin I 0.014 ng/mL (0.01-0.034)
[2021-07-09 21:56] LABS: COVID-19 CEPHEID PCR (VTM/NP) Negative (Negative); Influenza A - CEPHEID Flu A NEGATIVE (NEGATIVE); Influenza B - CEPHEID Flu B NEGATIVE (NEGATIVE)
[2021-07-09 22:00] LABS: CKMB % Relative Index 0.6 % (1.5-5.0)
--- NOTE | 2021-07-09 22:16 | DI.CT.S_ITS ---
PROCEDURE: CT ANGIO CHEST PE PROTOCOL INDICATIONS: SOB, chest pain, dry cough, tachycardia TECHNIQUE: After the administration of intravenous contrast, 2 mm thick sections acquired from the pulmonary apices to the posterior costophrenic angles. 3-dimensional maximum intensity projection (MIP) coronal and sagittal reformats were then acquired through the thorax. For radiation dose reduction, the following was used: automated exposure control, adjustment of mA and/or kV according to patient size. COMPARISON: None. FINDINGS: Image quality: Adequate. Pulmonary arteries: Pulmonary arteries are normal in size, and demonstrate no intraluminal filling defects to suggest central pulmonary embolism. Lungs and pleura: Central and peripheral airways are patent. There is mild mid and moderate lower lung bronchial wall thickening and lower lobe bronchial narrowing. There are low lung volumes, and mild posterior atelectatic changes. Mediastinum: Heart size is mildly enlarged, with a small pericardial effusion. No mediastinal or hilar adenopathy. Thoracic aorta is normal in caliber and enhancement. Esophagus is normal in caliber, without hiatal hernia. Bones and chest wall: No suspicious bony lesions. Ribs and thoracic spine appear intact throughout. Thyroid gland is normal. No axillary or supraclavicular adenopathy. Bilateral breast implants. Abdomen: Probable surgical changes of partial left hepatectomy. Visualized upper abdominal solid organs appear otherwise normal in the early arterial phase of enhancement. IMPRESSION: 1. No visible pulmonary embolus. 2. Mild cardiomegaly and pericardial effusion. 3. Mild bronchial wall thickening may indicate bronchitis. Dictated by: Nisha Desir M.D. on 07/09/2021 at 23:24 Approved by: Nisha Desir M.D. on 07/09/2021 at 23:29
[2021-07-09 23:25] LABS: Reflexed Lactate in 2 Hours Y
[2021-07-10] VITALS (39 sets, daily range): BP systolic 128–179; BP diastolic 58–101; PULSE 78–116; RESP 12–30; TEMP 36.8–37; O2SAT 91–98; BMI 37.4
[2021-07-10 00:01] LABS: Creatine Kinase 387 U/L (30-135); Lactate 2HR (Lactic Acid Rflx) 1.3 mmol/L (0.7-2.1)
[2021-07-10 00:14] LABS: Troponin I 0.014 ng/mL (0.01-0.034)
[2021-07-10 00:17] LABS: CKMB % Relative Index 0.6 % (1.5-5.0); Creatine Kinase MB 2.19 ng/mL (<2.37)
[2021-07-10] MEDS: FUROSEMIDE 40 MG/4 ML VIAL IV (00:17)
--- NOTE | 2021-07-10 01:34 | DI.ECHO.S_ITS ---
[facility]---------+ [facility] +---------+ : : [address] : : : : [id number] : : : : Phone: [phone] Echocardiogram Report + + :Name: URIEL LANG Study Date: 07/11/2021 Height: 64 in : :[facility] ReadingLocation: Weight: 223 lb : : ' Gender: Female BSA: 2.0 m2 : :: 1950 Age: 71 yrs BP: 144/78 mmHg: :Reason For Study: Pericardial Effusion : :Ordering Physician: MARLENE, : :MARIA Jiménez Performed By: Milton Denson : :Referring: MARIA ROSARIO : + + Interpretation Summary The left ventricle is normal in size and wall thickness. The left ventricle is hyperdynamic. The ejection fraction is estimated to be 70-75%. There are no focal wall motion abnormalities. Diastolic function could not be accurately assessed due to unobtainable data. The right ventricle is normal in size and function. Pulmonary artery pressures cannot be estimated because of the lack of a measurable TR jet velocity. Both atria are normal in size. There is no significant valvular heart disease. The aortic root is normal size. There is a trivial pericardial effusion noted. Procedure: A two-dimensional transthoracic echocardiogram with color flow and Doppler was performed. The study quality was technically adequate. There is no prior echocardiogram noted for this patient. Left Ventricle: The left ventricle is normal in size and wall thickness. The left ventricle is hyperdynamic. The ejection fraction is estimated to be 70- 75%. There are no focal wall motion abnormalities. Diastolic function could not be accurately assessed due to unobtainable data. Right Ventricle: The right ventricle is normal in size and function. Atria: Both atria are normal in size. The interatrial septum grossly appears intact with no obvious evidence for an atrial septal defect. Mitral Valve: The mitral valve is normal in structure and function. There is trace mitral regurgitation. Aortic Valve: The aortic valve is normal in structure and function. No aortic regurgitation is present. Tricuspid Valve: The tricuspid valve is normal in structure and function. No tricuspid regurgitation. Pulmonary artery pressures cannot be estimated because of the lack of a measurable TR jet velocity. Pulmonic Valve: The pulmonic valve is not well seen, but is grossly normal. There is no pulmonic valvular regurgitation. There is no significant valvular heart disease. Great Vessels: The aortic root is normal size. The dimensions of the ascending aorta are normal. The IVC is of normal diameter and collapses greater than 50% with a sniff. This suggests a low right atrial pressure of 3 mm Hg. Pericardium/ Pleura There is a trivial pericardial effusion noted. There is an anterior echo-free space consistent with a fat pad. There is no pleural effusion. MMode/2D Measurements & Calculations LVIDd: 4.7 cm LVOT diam: 1.8 cm LVIDs: 2.6 cm Ao root diam: 2.5 cm FS: 46.1 % asc Aorta Diam: 2.9 cm IVSd: 0.87 cm LVPWd: 0.87 cm LV jerez. diameter/BSA (cm/m^2): 2.3 LV sys. diameter/BSA (cm/m^2): 1.2 LA A2 area: 21.0 cm2 RA long axis: 5.7 cm LA A4 area: 23.0 cm2 RA area: 15.6 cm2 LA length (vol): 6.1 cm RA vol: 36.3 ml LA vol: 66.9 ml RA : 17.7 ml/m2 LA vol index: 32.7 ml/m2 TAPSE: 2.1 cm Doppler Measurements & Calculations Ao V2 max: 198.9 cm/sec LVOT Max Luis: 170.0 cm/sec Ao V2 mean: 132.5 cm/sec LV V1 max P.6 mmHg Ao max P.8 mmHg LV V1 VTI: 34.2 cm Ao mean P.0 mmHg CRISTOFER(I,D): 2.4 cm2 Ao V2 VTI: 36.6 cm CRISTOFER(V,D): 2.2 cm2 sev ratio: 0.93 CRISTOFER indexed to BSA (cm^2/m^2): 1.2 MV E max luis: 107.7 cm/sec SV(LVOT): 88.5 ml MV A max luis: 151.9 cm/sec MV E/A: 0.71 Med Peak E' Luis: 5.7 cm/sec E/E' med: 18.8 Lat Peak E' Luis: 6.0 cm/sec E/E' lat: 18.0 E/e' average: 18.4 MV dec time: 0.21 sec Reading Physician:01:54 PM
--- NOTE | 2021-07-10 01:38 | P.HP_ITS ---
History of Present Illness History of Present Illness Date Patient Seen: 07/10/21 Time Patient Seen: 01:39 Chief complaint: SOB ASTHMA Narrative: This is a 71-year-old female with Asthma and hypertension who presents with 3 days of increasingly tight breathing prompted by working in grass on the lawn, something she is usually quite allergic to. She had hoped it would get better and when finally it did not improve today she came to the emergency department. She had actually gone to the walk-in clinic yesterday and taken an unknown medication since then. She has also had a cough but no fever. Her BNP was elevated. A CT scan was done showing no signs of PE but there was a small- moderate pericardial effusion. This was discussed with Cardiology who recom mended that she stay under observation on telemetry until an echocardiogram could be done tomorrow. She will also be treated for her COPD exacerbation with IV Solu-Medrol and beta agonist therapy. 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 She lives alone. She is not normally on home oxygen. Her s aturation on arrival was 90% on room air. Patient History Medical History (Updated 07/10/21 @ 01:46 by Keya Baldwin MD) Asthma Congestive heart failure COPD (chronic obstructive pulmonary disease) History of smoking Liver hemangioma Seasonal allergies Surgical History (Updated 07/10/21 @ 01:43 by Keya Baldwin MD) History of back surgery History of hysterectomy History of parotidectomy History of surgery of liver Family & Social History Family History (Updated 07/10/21 @ 01:44 by Keya Baldwin MD) Mother Mitral valve disorder Safety & Behavioral: Feels Safe in Current Yes Environment Tobacco & Substance use: Smoking Status Former smoker alcohol intake frequency 0-2 drinks per day Substance Use Type does not use Meds Home Medications and Allergies Home Medications Medication Instructions Recorded Confirmed Type albuterol sulfate 90 mcg/actuation 2 puff INH #0 10/29/16 07/08/21 History aerosol inhaler (Ventolin HFA) atorvastatin 20 mg tablet (Lipitor) 20 mg PO HS #0 10/29/16 07/08/21 History budesonide-formoterol HFA 160 1 inh INH BID #0 10/29/16 07/08/21 History mcg-4.5 mcg/actuation aerosol inhaler (Symbicort) fluticasone furoate 200 1 puff INH #0 10/29/16 07/08/21 History mcg-vilanterol 25 mcg/dose inhalation powder (Breo Ellipta) levocetirizine 5 mg tablet 5 mg PO QDAY #0 10/29/16 07/08/21 History montelukast 10 mg tablet 10 mg PO QDAY #0 10/29/16 07/08/21 History omeprazole 40 mg capsule,delayed 40 mg #0 10/29/16 07/08/21 History release prednisone 20 mg tablet 40 mg PO QDAY #14 tab 10/29/16 07/08/21 Rx theophylline 100 mg 100 mg PO BID #0 10/29/16 07/08/21 History tablet,extended release,12 hr triamterene 37.5 1 cap PO QDAY #0 10/29/16 07/08/21 History mg-hydrochlorothiazide 25 mg capsule (Dyazide) hydrocodone 5 mg-acetaminophen 325 1 tab PO Q6H PRN #10 tab 12/09/19 07/08/21 Rx mg tablet ([place]) albuterol sulfate 1.25 mg/3 mL 1.25 mg (3 mL) INHALATION Q4-6H 07/08/21 07/08/21 Rx solution for nebulization PRN #75 ml benzonatate 100 mg capsule 100 mg PO BID PRN #20 cap 07/08/21 07/08/21 Rx prednisone 50 mg tablet 50 mg PO DAILY 5 Days #5 tab 07/08/21 07/08/21 Rx Allergies Allergy/AdvReac Type Severity Reaction Status Date / Time aspirin [ASPIRIN] Allergy Unknown Verified 07/09/21 20:32 egg [EGG] Allergy Unknown Verified 07/09/21 20:32 Penicillins [PENICILLINS] Allergy Unknown Verified 07/09/21 20:32 shellfish derived Allergy Unknown Verified 07/09/21 20:32 [SHELLFISH DERIVED] Review of Systems Review of Systems Narrative: She is alert and oriented x3. Positive for trouble breathing and chest tightness Negative for fevers, chills, sweats, chest pain, abdominal pain, nausea, vomiting, diarrhea, bleeding, dysuria, seizures, rash, headaches, new allergies. Exam Vital Signs (past 8 hours): - 07/09/21 20:15 07/09/21 20:22 07/09/21 20:30 Temperature 98.5 F Pulse Rate 119 H 114 H 105 H Respiratory Rate 34 H 28 H 35 H Blood Pressure 192/83 H 192/83 H Pulse Oximetry 97 97 96 07/09/21 21:00 07/09/21 21:30 07/09/21 22:00 Temperature Pulse Rate 100 H 102 H 99 H Respiratory Rate 16 18 20 Blood Pressure Pulse Oximetry 94 93 92 07/09/21 22:08 07/09/21 22:33 07/09/21 23:03 Temperature Pulse Rate 100 H 105 H 104 H Respiratory Rate 29 H 24 Blood Pressure 125/60 Pulse Oximetry 95 94 07/09/21 23:05 07/09/21 23:30 07/10/21 00:00 Temperature Pulse Rate 99 H 89 92 H Respiratory Rate 27 H 17 25 H Blood Pressure 146/72 H 139/65 148/66 H Pulse Oximetry 95 92 94 07/10/21 00:17 07/10/21 00:30 07/10/21 01:00 Temperature Pulse Rate 97 H 96 H 98 H Respiratory Rate 21 29 H Blood Pressure 165/101 H Pulse Oximetry 94 93 07/10/21 01:01 Temperature Pulse Rate 98 H Respiratory Rate Blood Pressure 161/73 H Pulse Oximetry 92 Oxygen Delivery Method Room Air Narrative Exam Narrative: She is alert and oriented x3. No apparent distress. Pupils are equally round reactive to light and accommodation Sclerae are pink and nonicteric Extraocular muscles are intact There is no thyromegaly No carotid bruits heard JVD is less than 6 cm No lymph nodes are felt head, neck, supraclavicular area Heart is regular rate and rhythm without murmur Lungs have wheezes bilaterally with tight air flow Abdomen is soft obese, nontender, no organomegaly Extremities have no ankle edema Skin has no rash or jaundice Neurological exam: There is no tremor, reflexes are in normal, cranial nerves 2- 12 test intact, motor function is 5/5 throughout, gait and balance are normal. Objective Labs Result Diagrams: 07/09/21 21:08 07/09/21 21:08 Labs: Laboratory Results - last 24 hr 07/09/21 07/09/21 07/09/21 21:00 21:08 21:08 WBC 10.4 RBC 4.56 Hgb 13.1 Hct 39.2 MCV 86.0 MCH 28.8 MCHC 33.5 RDW 13.2 Plt Count 272 Neut % (Auto) 68.9 Lymph % (Auto) 16.9 L Lipscomb % (Auto) 13.5 Eos % (Auto) 0.1 L Baso % (Auto) 0.6 Neut # (Auto) 7200 H Lymph # (Auto) 1800 Lipscomb # (Auto) 1400 H Eos # (Auto) 0 Baso # (Auto) 100 D-Dimer Sodium 140 Potassium 3.7 Chloride 100 Carbon Dioxide 30 BUN 20 H Creatinine 0.78 Estimated GFR > 60 BUN/Creatinine Ratio 25.6 H Glucose 125 H Lactate Calcium 9.4 Magnesium 1.9 Total Bilirubin 0.4 AST 29 ALT 18 Alkaline Phosphatase 54 Total Creatine Kinase 372 H CK-MB (CK-2) 2.30 CK-MB (CK-2) Rel Index 0.6 L Troponin I 0.014 NT-Pro-B Natriuret Pep 380 H Total Protein 7.1 Albumin 4.1 Globulin 3.0 Albumin/Globulin Ratio 1.4 Lipase 41 SARS-CoV-2 (PCR) Negative Influenza A (RT-PCR) Flu a negative Influenza B (RT-PCR) Flu b negative 07/09/21 07/09/21 07/09/21 21:08 21:08 23:39 WBC RBC Hgb Hct MCV MCH MCHC RDW Plt Count Neut % (Auto) Lymph % (Auto) Lipscomb % (Auto) Eos % (Auto) Baso % (Auto) Neut # (Auto) Lymph # (Auto) Lipscomb # (Auto) Eos # (Auto) Baso # (Auto) D-Dimer < 200 Sodium Potassium Chloride Carbon Dioxide BUN Creatinine Estimated GFR BUN/Creatinine Ratio Glucose Lactate 2.8 H 1.3 Calcium Magnesium Total Bilirubin AST ALT Alkaline Phosphatase Total Creatine Kinase CK-MB (CK-2) CK-MB (CK-2) Rel Index Troponin I NT-Pro-B Natriuret Pep Total Protein Albumin Globulin Albumin/Globulin Ratio Lipase SARS-CoV-2 (PCR) Influenza A (RT-PCR) Influenza B (RT-PCR) 07/09/21 23:39 WBC RBC Hgb Hct MCV MCH MCHC RDW Plt Count Neut % (Auto) Lymph % (Auto) Lipscomb % (Auto) Eos % (Auto) Baso % (Auto) Neut # (Auto) Lymph # (Auto) Lipscomb # (Auto) Eos # (Auto) Baso # (Auto) D-Dimer Sodium Potassium Chloride Carbon Dioxide BUN Creatinine Estimated GFR BUN/Creatinine Ratio Glucose Lactate Calcium Magnesium Total Bilirubin AST ALT Alkaline Phosphatase Total Creatine Kinase 387 H CK-MB (CK-2) 2.19 CK-MB (CK-2) Rel Index 0.6 L Troponin I 0.014 NT-Pro-B Natriuret Pep Total Protein Albumin Globulin Albumin/Globulin Ratio Lipase SARS-CoV-2 (PCR) Influenza A (RT-PCR) Influenza B (RT-PCR) Assessment & Plan Assessment & Plan narrative: This is a 71-year-old female with Asthma and hypertension who presents with 3 days of increasingly tight breathing prompted by working in grass on the lawn, something she is usually quite allergic to. She had hoped it would get better and when finally it did not improve today she came to the emergency department. Acute pulmonary bronchospasm, present admission. Active. -she has a history of asthma and is on several asthma medications -she has a history of smoking in the distant past and likely has a component of COPD -CT angio of the chest shows no signs of PE but does show a pericardial effusion -begin IV Solu-Medrol 80 mg q.8 -continue montelukast, albuterol, Symbicort, theophylline Acute pericardial effusion, present on admission. Active. -visible on CT angio of the chest -discussed with Cardiology and will proceed with echocardiogram -doubt symptoms present from this condition Hypertension, present on admission. Chronic. -continue triamterene and hydrochlorothiazide Hyperlipidemia, present onadmission. Chronic. -continue Atorvastatin Patient is low risk for DVT. She is up and moving around her room fairly often. Her son is her backup decision maker Time Spent With Patient Critical Care time: I spent a total of [] minutes of critical care time on this patient's care today; this time is exclusive of procedural time.
[2021-07-10] MEDS: SODIUM CHLORIDE 0.9% 1,000 ML 100 ML IV ×2 (02:36→15:09)
[2021-07-10] MEDS: BENZONATATE 100 MG CAPSULE PO (02:55)
[2021-07-10] MEDS: methylPREDNISolone 125 MG/2 ML VIAL 80 MG IV ×3 (02:55→20:16)
[2021-07-10] MEDS: ATORVASTATIN 20 MG TABLET PO ×2 (03:03→20:16)
--- NOTE | 2021-07-10 07:30 | PM.PN.1 ---
Subjective Subjective Date Patient Seen: 07/10/21 Interval history: She is seen to follow up her respiratory distress and pericardial effusion. Unfortunately her echocardiogram was not done today. She does not appear to have any hemodynamic instability or tamponade symptoms. Exam Vital Signs (past 8 hours): - 07/10/21 00:00 07/10/21 00:17 07/10/21 00:30 Pulse Rate 92 H 97 H 96 H Respiratory Rate 25 H 21 29 H Blood Pressure 148/66 H 165/101 H Pulse Oximetry 94 94 93 07/10/21 01:00 07/10/21 01:01 07/10/21 01:30 Pulse Rate 98 H 98 H 95 H Respiratory Rate 16 Blood Pressure 161/73 H Pulse Oximetry 92 93 07/10/21 02:00 07/10/21 02:40 07/10/21 03:00 Pulse Rate 94 H 92 H 88 Respiratory Rate 13 Blood Pressure Pulse Oximetry 91 93 93 07/10/21 03:15 07/10/21 03:30 07/10/21 04:00 Pulse Rate 91 H 85 83 Respiratory Rate 16 14 12 Blood Pressure 163/73 H 150/70 H Pulse Oximetry 94 91 93 07/10/21 04:30 07/10/21 05:00 07/10/21 05:30 Pulse Rate 80 84 85 Respiratory Rate 13 14 19 Blood Pressure Pulse Oximetry 93 93 94 07/10/21 06:04 07/10/21 06:30 Pulse Rate 91 H 82 Respiratory Rate 14 Blood Pressure 157/84 H Pulse Oximetry 94 91 Oxygen Delivery Method Room Air Narrative Exam Narrative: Alert and oriented. No apparent distress. Heart is regular rate and rhythm without murmur No cardiac rub, no pulsus paradoxus or JVD increase. Very tight air flow in the lungs No ankle edema Objective Labs Result Diagrams: 07/09/21 21:08 07/09/21 21:08 Labs: Laboratory Results - last 24 hr 07/09/21 07/09/21 07/09/21 21:00 21:08 21:08 WBC 10.4 RBC 4.56 Hgb 13.1 Hct 39.2 MCV 86.0 MCH 28.8 MCHC 33.5 RDW 13.2 Plt Count 272 Neut % (Auto) 68.9 Lymph % (Auto) 16.9 L [place] % (Auto) 13.5 Eos % (Auto) 0.1 L Baso % (Auto) 0.6 Neut # (Auto) 7200 H Lymph # (Auto) 1800 [place] # (Auto) 1400 H Eos # (Auto) 0 Baso # (Auto) 100 D-Dimer Sodium 140 Potassium 3.7 Chloride 100 Carbon Dioxide 30 BUN 20 H Creatinine 0.78 Estimated GFR > 60 BUN/Creatinine Ratio 25.6 H Glucose 125 H Lactate Calcium 9.4 Magnesium 1.9 Total Bilirubin 0.4 AST 29 ALT 18 Alkaline Phosphatase 54 Total Creatine Kinase 372 H CK-MB (CK-2) 2.30 CK-MB (CK-2) Rel Index 0.6 L Troponin I 0.014 NT-Pro-B Natriuret Pep 380 H Total Protein 7.1 Albumin 4.1 Globulin 3.0 Albumin/Globulin Ratio 1.4 Lipase 41 SARS-CoV-2 (PCR) Negative Influenza A (RT-PCR) Flu a negative Influenza B (RT-PCR) Flu b negative 07/09/21 07/09/21 07/09/21 21:08 21:08 23:39 WBC RBC Hgb Hct MCV MCH MCHC RDW Plt Count Neut % (Auto) Lymph % (Auto) [place] % (Auto) Eos % (Auto) Baso % (Auto) Neut # (Auto) Lymph # (Auto) [place] # (Auto) Eos # (Auto) Baso # (Auto) D-Dimer < 200 Sodium Potassium Chloride Carbon Dioxide BUN Creatinine Estimated GFR BUN/Creatinine Ratio Glucose Lactate 2.8 H 1.3 Calcium Magnesium Total Bilirubin AST ALT Alkaline Phosphatase Total Creatine Kinase CK-MB (CK-2) CK-MB (CK-2) Rel Index Troponin I NT-Pro-B Natriuret Pep Total Protein Albumin Globulin Albumin/Globulin Ratio Lipase SARS-CoV-2 (PCR) Influenza A (RT-PCR) Influenza B (RT-PCR) 07/09/21 23:39 WBC RBC Hgb Hct MCV MCH MCHC RDW Plt Count Neut % (Auto) Lymph % (Auto) [place] % (Auto) Eos % (Auto) Baso % (Auto) Neut # (Auto) Lymph # (Auto) [place] # (Auto) Eos # (Auto) Baso # (Auto) D-Dimer Sodium Potassium Chloride Carbon Dioxide BUN Creatinine Estimated GFR BUN/Creatinine Ratio Glucose Lactate Calcium Magnesium Total Bilirubin AST ALT Alkaline Phosphatase Total Creatine Kinase 387 H CK-MB (CK-2) 2.19 CK-MB (CK-2) Rel Index 0.6 L Troponin I 0.014 NT-Pro-B Natriuret Pep Total Protein Albumin Globulin Albumin/Globulin Ratio Lipase SARS-CoV-2 (PCR) Influenza A (RT-PCR) Influenza B (RT-PCR) [facility] Medical History (Updated 07/10/21 @ 01:46 by Keya Baldwin MD) Asthma Congestive heart failure COPD (chronic obstructive pulmonary disease) History of smoking Liver hemangioma Seasonal allergies Surgical History (Updated 07/10/21 @ 01:43 by Keya Baldwin MD) History of back surgery History of hysterectomy History of parotidectomy History of surgery of liver Family History (Updated 07/10/21 @ 01:44 by Keya Baldwin MD) Mother Mitral valve disorder Social History household members: none Smoking Status: Never smoker Assessment & Plan Assessment & Plan narrative: This is a 71-year-old female with Asthma and hypertension who presents with 3 days of increasingly tight breathing prompted by working in grass on her lawn, something she is usually quite allergic to.? She had hoped it would get better and when finally it did not improve today she came to the emergency department. Acute pulmonary bronchospasm, present admission.? Active.? -she has a history of asthma and is on several asthma medications -she has a history of smoking in the distant past and likely has a component of COPD -CT angio of the chest shows no signs of PE but does show a pericardial effusion -Continue IV Solu-Medrol 80 mg q.8 -continue montelukast, albuterol, Symbicort, theophylline? Acute pericardial effusion, present on admission.? Active.? -visible on CT angio of the chest -discussed with Cardiology and will proceed with echocardiogram. Was not done on 07/10 but is apparently on the schedule for 07/11. -doubt symptoms present from this condition Hypertension, present on admission.? Chronic.? -continue triamterene and hydrochlorothiazide -repeat electrolytes 07/11. Hyperlipidemia, present onadmission.? Chronic.? -continue Atorvastatin Patient is low risk for DVT.? She is up and moving around her room fairly often. Her son is her backup decision maker Time Spent With Patient Critical Care time: I spent a total of [] minutes of critical care time on this patient's care today; this time is exclusive of procedural time.
[2021-07-10] MEDS: BUDESONIDE 0.5 MG/2 ML NEB INH ×2 (08:38→19:15)
[2021-07-10] MEDS: ALBUTEROL 2.5 MG/3 ML NEB (ADULT) INH ×3 (08:38→15:55)
[2021-07-10] MEDS: MONTELUKAST 10 MG TABLET PO (09:47)
[2021-07-10] MEDS: PANTOPRAZOLE DR 40 MG TABLET PO (09:47)
[2021-07-10] MEDS: LORATADINE 10 MG TABLET PO (09:47)
[2021-07-10] MEDS: TRIAMTERENE/HCTZ 37.5/25 CAPSULE 1 CAP PO (09:48)
--- NOTE | 2021-07-10 12:21 | CM.IDA ---
Initial DCP Assessment Note Pt is a 71 yo female, resident of [place], presents with SOB/Asthma, PMH COPD and seasonal allergies, admitted observation for management of Acute pulmonary bronchospasm, Acute pericardial effusion. echo pending today PCP: None Listed Payer: AGGIE SHRESTHA Reviewed chart, pt discussed in multidisciplinary rounds this morning. Patient expected to return home later this evening or tomorrow Met w/patient this morning in ER Rm 04; patient awaiting bed transfer to the acute care floor. 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 Patient states she likes to stay busy. Patient denies needs from CM team, explains her son Young and his are driving up now from [place] to spend the night for a few nights and assist as needed Plan: DC home upon DC; no needs expected CAROLINA Bhakta Discharge Planning/Care Management CM Discharge Assessment Start: 07/10/21 12:16 Freq: Status: Active Protocol: Document 07/10/21 12:17 BRADLEY (Rec: 07/10/21 12:21 BRADLEY [id number]) Discharge Planning Assessment Assigned Major Donor Coordinator CAROLINA Lopez DPOA/Assigned Designee Name Young Alonso Contact Information [phone] Advance Directives? Yes Prior Living Arrangements House Household Members none Type of transporation used prior to Drives own vehicle admit Independent with ADL's Yes Is patient alert and oriented? Yes Comment Home Barriers to Discharge No Comment Home today or tomorrow w/ family to assist Discharge Plan Home Transportation Arrangement Family Referrals Initiated None needed
[2021-07-10] MEDS: MELATONIN 3 MG TABLET PO (22:35)
[2021-07-11 03:19] VITALS: BP 135/66; PULSE 74; RESP 14; TEMP 36.6; O2SAT 96
[2021-07-11] MEDS: methylPREDNISolone 125 MG/2 ML VIAL 80 MG IV ×2 (04:00→10:57)
[2021-07-11 05:56] LABS: Add Manual Diff / Slide Review NO; Basophils Absolute Auto 0 /uL (0-100); Basophils Percent Auto 0.1 % (0-2); Eosinophils Absolute Auto 0 /uL (0-450); Hematocrit 42.9 % (36-46); Hemoglobin 14.4 g/dL (12.0-16.0); Lymphocytes Absolute Auto 900 /uL (1100-4500); Lymphocytes Percent Auto 9.3 % (25-40); Mean Corpuscular HGB Conc 33.5 % (30-36); Mean Corpuscular Hemoglobin 28.7 PG (26-34); Mean Corpuscular Volume 85.6 fL (80-100); Monocytes Absolute Auto 700 /uL (0-900); Monocytes Percent Auto 6.8 % (3-14); Neutrophils Absolute Auto 8000 /uL (1500-7000); Neutrophils Percent Auto 83.8 % (50-75); Platelet Count 298 X10^3/uL (150-400); Red Blood Cell Count 5.01 X10^6/uL (4.0-5.2); Red Cell Distribution Width 13.5 % (11.6-14.8); White Blood Cell Count 9.6 X10^3/uL (4.5-11.0)
[2021-07-11 06:02] LABS: BUN Creatinine Ratio 22.9 (6-22); Blood Urea Nitrogen 16 mg/dL (7-17); Calcium 9.2 mg/dL (8.4-10.2); Carbon Dioxide 31 mmol/L (22-32); Chloride 103 mmol/L (98-107); Estimated Glomerular Filt Rate > 60 mL/min (>60); Glucose 130 mg/dL (80-110); HEMOLYSIS < 15 (0-50); Potassium 3.6 mmol/L (3.4-5.1); Sodium 141 mmol/L (137-145)
[2021-07-11 08:00] VITALS: BP 144/78; PULSE 85; RESP 18; TEMP 36.8; O2SAT 96
--- NOTE | 2021-07-11 08:34 | P.DS_ITS ---
History of Present Illness History of Present Illness Chief complaint: SOB ASTHMA Narrative: Per Dr. Baldwin This is a 71-year-old female with Asthma and hypertension who presents with 3 days of increasingly tight breathing prompted by working in grass on the lawn, something she is usually quite allergic to.? She had hoped it would get better and when finally it did not improve today she came to the emergency department.? She had actually gone to the walk-in clinic yesterday and taken an unknown medication since then.? She has also had a cough but no fever.? Her BNP was elevated.? A CT scan was done showing no signs of PE but there was a small- moderate pericardial effusion.? This was discussed with Cardiology who recommended that she stay under observation on telemetry until an echocardiogram could be done tomorrow.? She will also be treated for her COPD exacerbation with IV Solu-Medrol and beta agonist therapy.? 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 She lives alone.? She is not normally on home oxygen.? Her saturation on arrival was 90% on room air. Discharge Providers Provider Date of admission: 07/10/21 00:27 Discharge Date: 07/11/21 Discharge provider: Omar Arevalo MD Summary Hospital Course Discharge Diagnosis: 1. Pericardial effusion, acute 2. Probable acute pericarditis 3. Asthma 4. HTN 5. HL Hospital Course: Ms. Claude Villalta was admitted with shortness of breath and chest discomfort. CT showed a small pericardial effusion, ECHO showed a very small effusion. She was thought to have an asthma exacerbation, and started on steroids. She also possibly had pericarditis. She had an aspirin allergy, so nsaids were not given. She was ordered for colchicine. She should follow up with her PCP within the next 1-2 weeks. Exam Vital Signs (past 8 hours): Oxygen Delivery Method Room Air Oxygen Flow Rate 0 Narrative Exam Narrative: GEN: no acute distress PULM: clear bilaterally CV: regular rate and rhyth, no murmurs Objective Labs Result Diagrams: 07/11/21 05:21 07/11/21 05:21 [facility] Medical History (Updated 07/10/21 @ 01:46 by Keya Baldwin MD) Asthma Congestive heart failure COPD (chronic obstructive pulmonary disease) History of smoking Liver hemangioma Seasonal allergies Surgical History (Updated 07/10/21 @ 01:43 by Keya Baldwin MD) History of back surgery History of hysterectomy History of parotidectomy History of surgery of liver Family History (Updated 07/10/21 @ 01:44 by Keya Baldwin MD) Mother Mitral valve disorder Social History household members: none Smoking Status: Never smoker Discharge Plan Discharge Plan Patient Disposition: Home Provider Discharge Comment: Ms. Claude Villalta came in to the hospital with shortness of breath and chest discomfort. She was having an asthma flare. In addition she had fluid around the heart (called a pericardial effusion), possibly secondary to inflammation (called pericarditis). She was given colchicine which helps reduce inflammation around the heart and prednisone which helps reduced asthma flare. Discharge orders & Medications Prescriptions: New colchicine 0.6 mg Tablet 0.6 mg PO DAILY Qty: 14 0RF prednisone 20 mg tablet 40 mg PO DAILY Qty: 8 0RF Continued albuterol sulfate 1.25 mg/3 mL solution for nebulization 1.25 mg inhalation Q4-6H PRN (Reason: shortness of breath or wheezing) Qty: 75 0RF omeprazole 40 MG capsule,delayed release(DR/EC) 40 mg PO DAILY Qty: 0 0RF montelukast 10 MG tablet 10 mg PO QDAY Qty: 0 0RF albuterol sulfate [Ventolin HFA] 90 MCG/PUFF HFA aerosol inhaler 2 puff INH Qty: 0 0RF levocetirizine 5 MG tablet 5 mg PO QDAY Qty: 0 0RF atorvastatin [Lipitor] 20 MG tablet 20 mg PO HS Qty: 0 0RF theophylline 100 MG tablet extended release 12 hr 300 mg PO BID Qty: 0 0RF triamterene-hydrochlorothiazid [Dyazide] 37.5 MG/25 MG capsule 1 cap PO QDAY Qty: 0 0RF Diet/Activity/Treatments Diet: Regular Discharge Data Attending Provider: Keya Baldwin
[2021-07-11] MEDS: PANTOPRAZOLE DR 40 MG TABLET PO (08:54)
[2021-07-11] MEDS: LORATADINE 10 MG TABLET PO (08:54)
[2021-07-11] MEDS: MONTELUKAST 10 MG TABLET PO (08:54)
[2021-07-11 09:42] VITALS: PULSE 78; RESP 16; O2SAT 98
[2021-07-11] MEDS: BUDESONIDE 0.5 MG/2 ML NEB INH (09:42)
[2021-07-11] MEDS: ALBUTEROL 2.5 MG/3 ML NEB (ADULT) INH (09:42)
[2021-07-11] MEDS: THEOPHYLLINE ER 300 MG PO (10:58)
[2021-07-11 11:34] VITALS: BP 152/69; PULSE 78; RESP 18; TEMP 36.3; O2SAT 97
--- NOTE | 2021-07-11 12:25 | CM.DPC ---
DCP Cont: Discussed patient during team rounds. Paient here with CHF. The plan is for patient to have an echo today. Patient could potentially discharge today if stable. Patient resides here in [place], and son and [id number] are here from [place]. P: DCP to continue to follow for any needs. Plan is home when medically stable. Carissa Hanley RN/Staff Research Associate
[2021-07-11] MEDS: COLCHICINE 0.6 MG TABLET PO (13:48)
[2021-07-11 13:55] LABS: C-Reactive Protein Quant 0.7 mg/dL (<1.0)
== END 2021-07-11 15:17 | disposition home or self-care (01) ==
LOC: ED 20:25 → AC 07-10 00:28
PROVIDERS: Internal Medicine; Admitting Provider Family Medicine; Emergency Provider Emergency Medicine; Referring Provider Emergency Medicine; Visit Provider Family Medicine
DX: I31.3 Pericardial effusion (noninflammatory) (principal); E78.5 Hyperlipidemia, unspecified; J44.9 Chronic obstructive pulmonary disease, unspecified; Z87.891 Personal history of nicotine dependence; Z20.822 Contact with and (suspected) exposure to COVID-19; I10 Essential (primary) hypertension
CPT/HCPCS: 36415; 71046; 71275; 80048; 80053; 81003; 82550; 82553; 83605; 83690; 83735; 83880; 84484; 85025; 85379; 86140; 87040; 87635; 93005; 93306; 94150; 94640; 96374; 96375; 96376; 99284; C9803; G0378; J1940; J2930; J7613

== ENCOUNTER → 2021-07-21 10:32 | Outpatient (CLI) | payer MEDICARE, SELFPAY ==
[2021-07-10 13:12] VITALS: BMI 37.4
--- NOTE | 2021-07-21 | DI.RAD.S_ITS ---
PROCEDURE: XR CHEST 2V INDICATIONS: cough, history of asthma, CHF, low back pain TECHNIQUE: 2 views of the chest were acquired. COMPARISON: [facility], CT, CT ANGIO CHEST PE PROTOCOL, 07/09/2021, 22:25. [facility], CR, XR CHEST 2V, 07/09/2021, 20:38. FINDINGS: Surgical changes and devices: None. Lungs and pleura: No consolidation, pleural effusions or pneumothorax. Mediastinum: Mediastinal contours are normal. Heart size is normal. Bones and chest wall: No suspicious bony abnormalities. Soft tissues appear unremarkable. IMPRESSION: No acute cardiopulmonary abnormality. Dictated by: Huey Cain M.D. on 07/21/2021 at 11:33 Approved by: Huey Cain M.D. on 07/21/2021 at 11:35
--- NOTE | 2021-07-21 10:39 | DI.RAD.S_ITS ---
PROCEDURE: XR LUMBAR SPINE 2-3V INDICATIONS: progressive low back pain TECHNIQUE: 3 views of the lumbar spine were acquired. COMPARISON: [facility], XR LUMBAR SPINE WITH OLBIQUES PLUS FLEXION EXTENSION, 08/17/2020, 8:44. FINDINGS: Bones: 5 [id number] vertebrae are present. There is overall lumbar straightening. Severe disc space narrowing is present at L4-5, L5-S1 with severe foraminal narrowing at L4-5 and [id number] L5-S1. [id number] disc space narrowing is present from L1-2 through L3-4 with overall multilevel mild foraminal narrowing at these levels. Partially visualized left hip arthroplasty is present. No vertebral body compression fractures. No suspicious bony lesions. Soft tissues: Overlying bowel gas pattern is normal. No suspicious soft tissue calcifications. IMPRESSION: Multilevel degenerative changes most severe at L4-5 and L5-S1. Dictated by: Kiersten Banks M.D. on 07/21/2021 at 17:27 Approved by: Kiersten Banks M.D. on 07/21/2021 at 17:28
== END ==
PROVIDERS: PCP Family Medicine; Referring Provider Family Medicine; Visit Provider Family Medicine
DX: M47.816 Spondylosis without myelopathy or radiculopathy, lumbar region (principal); M47.817 Spondylosis without myelopathy or radiculopathy, lumbosacral region; I50.9 Heart failure, unspecified; R05.9 Cough, unspecified; M54.9 Dorsalgia, unspecified
CPT/HCPCS: 71046; 72100

== ENCOUNTER → 2021-09-09 10:01 | Outpatient (CLI) | payer MEDICARE, SELFPAY ==
[2021-07-10 13:12] VITALS: BMI 37.4
[2021-09-09 10:32] LABS: Add Manual Diff / Slide Review NO; Basophils Absolute Auto 100 /uL (0-100); Basophils Percent Auto 1.2 % (0-2); Eosinophils Absolute Auto 400 /uL (0-450); Eosinophils Percent Auto 6.7 % (2-4); Hematocrit 42.6 % (36-46); Hemoglobin 14.4 g/dL (12.0-16.0); Lymphocytes Absolute Auto 1900 /uL (1100-4500); Lymphocytes Percent Auto 29.6 % (25-40); Mean Corpuscular HGB Conc 33.7 % (30-36); Mean Corpuscular Hemoglobin 29.1 PG (26-34); Mean Corpuscular Volume 86.2 fL (80-100); Monocytes Absolute Auto 600 /uL (0-900); Monocytes Percent Auto 8.8 % (3-14); Neutrophils Absolute Auto 3400 /uL (1500-7000); Neutrophils Percent Auto 53.7 % (50-75); Platelet Count 217 X10^3/uL (150-400); Red Blood Cell Count 4.94 X10^6/uL (4.0-5.2); Red Cell Distribution Width 13.7 % (11.6-14.8); White Blood Cell Count 6.3 X10^3/uL (4.5-11.0)
[2021-09-09 10:43] LABS: Hemoglobin A1C% w Est Avg Glu 5.6 % (4.0-6.0)
[2021-09-09 11:01] LABS: Alanine Aminotransferase 13 IU/L (<35); Albumin 4.4 g/dL (3.5-5.0); Albumin Globulin Ratio 1.6 (1.0-2.8); Alkaline Phosphatase 45 U/L (38-126); Aspartate Aminotransferase 20 IU/L (14-36); BUN Creatinine Ratio 33.3 (6-22); Bilirubin Total 0.4 mg/dL (0.2-1.3); Blood Urea Nitrogen 25 mg/dL (7-17); Carbon Dioxide 30 mmol/L (22-32); Chloride 102 mmol/L (98-107); Cholesterol 145 mg/dL (140-199); Estimated Glomerular Filt Rate > 60 mL/min (>60); Globulin 2.8 g/dL (1.7-4.1); Glucose 100 mg/dL (80-110); HDL Cholesterol 52 mg/dL (40-60); HEMOLYSIS < 15 (0-50); LDL Cholesterol Calculated 69 mg/dL (<100); Potassium 3.7 mmol/L (3.4-5.1); Sodium 141 mmol/L (137-145); Total Protein 7.2 g/dL (6.3-8.2); Triglycerides 121 mg/dL (35-150)
[2021-09-10 11:31] LABS: Theophylline 11.7 ug/mL (10.0-20.0)
== END ==
PROVIDERS: PCP Family Medicine; Referring Provider Family Medicine; Visit Provider Family Medicine
DX: I10 Essential (primary) hypertension (principal); R73.9 Hyperglycemia, unspecified; J45.909 Unspecified asthma, uncomplicated; M54.9 Dorsalgia, unspecified
CPT/HCPCS: 36415; 80053; 80061; 80198; 83036; 85025

== ENCOUNTER → 2021-10-07 15:36 | Outpatient (CLI) | payer MEDICARE, SELFPAY ==
[2021-07-10 13:12] VITALS: BMI 37.4
--- NOTE | 2021-10-07 15:37 | DI.MRI.S_ITS ---
PROCEDURE: MR LUMBAR SPINE WO CON INDICATIONS: foraminal stenosis R side sciatica TECHNIQUE: Noncontrast sagittal T1 spin echo and T2 fast echo, sagittal STIR, coronal T2, and T2 fast spin echo through the lumbar spine. In cases with scoliosis, additional coronal T2 fast spin echo may be performed. COMPARISON: [facility], , MR LUMBAR SPINE WO CON, 03/22/2019, 11:02. FINDINGS: Image quality: Excellent. Alignment and Curvature: 5 lumbar type vertebral bodies are present by plain film. Mild diffuse leftward curvature of the lumbar spine. Loss of normal lumbar lordosis. 2 mm retrolisthesis of L1 on L2, L2 on L3, L3 on L4, and L4 on L5. 3 mm of retrolisthesis of L5 on S1. Bone Marrow: Marrow is of normal overall signal. No acute vertebral body compression fractures. S1. Moderate reactive signal within the endplates adjacent to the L4-L5 and L5-S1 intervertebral discs. Mild reactive signal adjacent to the remaining thoracolumbar intervertebral discs. Left posterior L3 hemangioma. Right hemilaminotomy. Spinal Cord: Conus medullaris terminates at the L1-L2 disc space level. Visualized cord demonstrates normal signal and size. Paraspinous Soft Tissues: No paravertebral masses. T12-L1: Moderate disc desiccation. Mild disc height loss and diffuse disc bulge. Mild facet and ligamentum flavum hypertrophy. Mild canal stenosis. No foraminal stenosis. No significant change. L1-L2: Moderate disc height loss and desiccation. Moderate diffuse disc bulge. Mild facet and ligamentum flavum hypertrophy. Mild epidural lipomatosis. Mild canal stenosis. Mild bilateral foraminal stenosis. No significant change. L2-L3: Moderate disc height loss and desiccation. Mild diffuse disc bulge. Mild facet and ligamentum flavum hypertrophy. Mild epidural lipomatosis. Mild canal stenosis. Mild bilateral foraminal stenosis. No significant change. L3-L4: Mild disc height loss. Moderate disc desiccation. Mild diffuse disc bulge. Mild epidural lipomatosis. Mild facet and ligamentum flavum hypertrophy. Mild canal stenosis. Mild bilateral foraminal stenosis. No significant change. L4-L5: Severe disc height loss and desiccation. Mild diffuse disc bulge with superimposed right posterolateral protrusion. Mild bilateral facet hypertrophy. Mild canal stenosis. Mild right greater than left foraminal stenosis. No significant change. L5-S1: Moderate disc height loss and desiccation. Moderate diffuse disc bulge with superimposed broad-based left posterolateral protrusion. Mild bilateral facet hypertrophy. Possible left hemilaminotomy. Mild canal stenosis. Moderate left and mild right foraminal stenosis. No significant change. IMPRESSION: 1. Multilevel degenerative disc and facet disease, as well as ligamentum flavum hypertrophy and epidural lipomatosis. 2. Postsurgical sequelae. 3. Mild multilevel canal stenosis. 4. Multilevel foraminal stenoses, worst at L5-S1 where there is moderate foraminal stenosis. Dictated by: Jong Kirkpatrick M.D. on 10/07/2021 at 16:34 Transcribed by: ADONAY on 10/07/2021 at 16:38 Approved by: Jong Kirkpatrick M.D. on 10/07/2021 at 16:54
== END ==
PROVIDERS: PCP Family Medicine; Referring Provider Orthopaedic Surgery Orthopaedic Surgery of the Spine; Visit Provider Orthopaedic Surgery Orthopaedic Surgery of the Spine
DX: M48.061 Spinal stenosis, lumbar region without neurogenic claudication (principal); M48.07 Spinal stenosis, lumbosacral region; M51.16 Intervertebral disc disorders with radiculopathy, lumbar region; M51.17 Intervertebral disc disorders with radiculopathy, lumbosacral region; M47.26 Other spondylosis with radiculopathy, lumbar region; M47.27 Other spondylosis with radiculopathy, lumbosacral region; M54.9 Dorsalgia, unspecified
CPT/HCPCS: 72148

== ENCOUNTER 2022-02-20 03:54 | Emergency (ER) | payer MEDICARE, SELFPAY ==
[2021-07-10 13:12] VITALS: BMI 37.4
[2022-02-20 04:00] VITALS: BP 177/86; PULSE 86; RESP 20; TEMP 37.1; O2SAT 97; BMI 39.3
--- NOTE | 2022-02-20 04:09 | DI.RAD.S_ITS ---
PROCEDURE: XR CHEST 2V INDICATIONS: cough TECHNIQUE: 2 views of the chest were acquired. COMPARISON: [facility], CR, XR CHEST 2V, 07/21/2021, 10:43. FINDINGS: Surgical changes and devices: None. Lungs and pleura: Mild patchy bilateral perihilar and right basilar opacity. No pleural effusions or pneumothorax. Mediastinum: Mediastinal contours are normal. Heart size is normal. Bones and chest wall: No suspicious bony abnormalities. Soft tissues appear unremarkable. IMPRESSION: Bilateral pneumonia. Continued plain film surveillance is recommended to ensure resolution, and to exclude underlying or central malignancy.Concordant with preliminary interpretation. Dictated by: Jong Kirkpatrick M.D. on 02/20/2022 at 7:15 Approved by: Jong Kirkpatrick M.D. on 02/20/2022 at 7:17
--- NOTE | 2022-02-20 04:09 | ED_ITS ---
HPI - SOB/Dyspnea General Chief Complaint: Shortness of Breath/Dyspnea Stated Complaint: COUGH/SOB Time Seen by Provider: 02/20/22 03:56 History of Present Illness HPI Narrative: 71-year-old female nonsmoker with history of asthma, hypertension presents with a chief complaint of multiple days of increasing harsh sounding cough and occasional sputum production. She denies headache or blurred vision but does have some mild sore throat. She is had no fever or chills. She has no chest pain. She denies nausea, vomiting or diarrhea. She denies urinary complaints such as dysuria, frequency or urgency. She states she is been using her nebulizers with increasing frequency and says they are not working Related Data Home Medications Medication Instructions Recorded Confirmed albuterol sulfate 90 mcg/actuation 2 puff INH ##0 10/29/16 09/09/21 aerosol inhaler (Ventolin HFA) atorvastatin 20 mg tablet (Lipitor) 20 mg PO HS ##0 10/29/16 09/09/21 levocetirizine 5 mg tablet 5 mg PO QDAY ##0 10/29/16 09/09/21 montelukast 10 mg tablet 10 mg PO QDAY ##0 10/29/16 09/09/21 omeprazole 40 mg capsule,delayed 40 mg PO DAILY ##0 10/29/16 09/09/21 release theophylline 100 mg 300 mg PO BID ##0 10/29/16 09/09/21 tablet,extended release,12 hr Previous Rx's Medication Instructions Recorded albuterol sulfate 1.25 mg/3 mL 1.25 mg (3 mL) inhalation Q4-6H 07/08/21 solution for nebulization PRN shortness of breath or wheezing #75 mL fluticasone 250 mcg-salmeterol 50 1 inh inhalation BID #60 ea 07/21/21 mcg/dose blistr powdr for inhalation (Advair Diskus) losartan 50 mg-hydrochlorothiazide 1 tab PO DAILY #90 tabs 07/21/21 12.5 mg tablet epinephrine 0.3 mg/0.3 mL 0.3 mg (0.3 mL) IM Q5-15M PRN 09/27/21 injection, auto-injector (EpiPen anaphylaxis #2 ea 2-Chinedu) celecoxib 200 mg capsule 200 mg PO DAILY #30 caps 07/22/22 benzonatate 200 mg capsule 200 mg PO BID PRN cough #20 caps 02/20/22 codeine 10 mg-guaifenesin 200 mg/5 5 ml PO Q4-6H PRN cough #473 mL 02/20/22 mL oral liquid doxycycline hyclate 100 mg tablet 100 mg PO BID #20 tabs 02/20/22 Allergies Allergy/AdvReac Type Severity Reaction Status Date / Time aspirin [ASPIRIN] Allergy Unknown Verified 09/09/21 09:05 egg [EGG] Allergy Unknown Verified 09/09/21 09:05 Penicillins [PENICILLINS] Allergy Unknown Verified 09/09/21 09:05 shellfish derived Allergy Unknown Verified 09/09/21 09:05 [SHELLFISH DERIVED] Review of Systems Review of Systems Narrative: GENERAL: See HPI HEENT: See HPI RESPIRATORY: See HPI CARDIOVASCULAR: Denies chest pain, palpitations, orthopnea, edema, GASTROINTESTINAL: Denies nausea, vomiting, abdominal pain, diarrhea, constipation, melena. : Denies dysuria, frequency, incontinence, hematuria, urinary retention. MUSCULOSKELETAL: denies weakness, joint pain, or bony pain SKIN: Denies rash, skin lesions, or other NEUROLOGIC: Denies weakness, headache, numbness, change in speech, confusion, seizures, incoordination. PSYCHIATRIC: No concerning psychosocial issues. 12 point review of systems is negative except for those stated above Patient History Medical History Asthma Asthma Back pain Bronchitis COPD (chronic obstructive pulmonary disease) History of smoking Hyperglycemia Hypertension Liver hemangioma Seasonal allergies Surgical History History of back surgery History of hysterectomy History of parotidectomy History of surgery of liver Family History Mother Mitral valve disorder Social History household members: none Smoking Status: Never smoker Smoking Status: Never smoker alcohol intake frequency: 0-2 drinks per day Substance Use Type: does not use Exam Narrative Exam Narrative: GENERAL: 71 year old patient appears stated age. Well-developed patient, in mild distress. HEAD: Atraumatic. Normocephalic. EYES: Pupils equal round and reactive. Extraocular motions intact. No scleral icterus. No injection or drainage. ENT: Nose without bleeding, purulent drainage. Significant clear postpharyngeal drainage, no tonsillar swelling or uvular pointing. NECK: Trachea midline. Non tender CARDIOVASCULAR: Regular rate and rhythm without murmurs, gallops, or rubs. RESPIRATORY: Clear to auscultation. Breath sounds equal bilaterally. No wheezes, rales, or rhonchi. GASTROINTESTINAL: Abdomen soft, non-tender, nondistended. EXTREMITIES: No edema or joint tenderness. BACK: Nontender without deformity or crepitance. No flank tenderness. NEURO: AOx3. SKIN: No rash or erythema of visible areas Initial Vital Signs Initial Vital Signs: Vital Signs Temperature 98.7 F 02/20/22 04:00 Pulse Rate 86 02/20/22 04:00 Respiratory Rate 20 02/20/22 04:00 Blood Pressure 177/86 H 02/20/22 04:00 Pulse Oximetry 97 02/20/22 04:00 Oxygen Delivery Method 02/20/22 04:00 Course Orders Ordered: ED Orders 02/20/22 04:00 Covid-19 + FLU A/B + RSV - PCR Stat 02/20/22 04:09 Chest [XR chest 2V] Stat Discontinued Medications Acetaminophen/Codeine Phosphate (Acetaminophen/Codeine Soln 5 Ml Solution) 10 ml PO NOW ONE Stop: 02/20/22 05:18 Last Admin: 02/20/22 05:59 Dose: 10 ml Documented By: MANSOOR Doxycycline Hyclate (Doxycycline Hyclate 100 Mg Tablet) 100 mg PO NOW ONE Stop: 02/20/22 05:40 Last Admin: 02/20/22 05:59 Dose: 100 mg Documented By: MANSOOR Vital Signs Vital signs: Vital Signs - 8 hr 02/20/22 04:00 02/20/22 05:50 Temperature 98.7 F Pulse Rate 86 85 Respiratory Rate 20 18 Blood Pressure 177/86 H 189/78 H Pulse Oximetry 97 97 Oxygen Delivery Method Room Air Room Air MDM - SOB/Dyspnea Lab Data Labs: Lab Results 02/20/22 Range/Units 04:00 SARS-CoV-2 (PCR) Negative (Negative) Influenza A (RT-PCR) Flu a negative (NEGATIVE) Influenza B (RT-PCR) Flu b negative (NEGATIVE) RSV (PCR) Positive A (Negative) Imaging Data Chest x-ray: Attestation: I personally reviewed and interpreted this imaging study as follows: My Impression: Possible streaky lower lobe infiltrate MDM Narrative Medical decision making narrative: 71-year-old female nonsmoker with history of asthma presents with increasing cough despite use of bronchodilators. Vital signs are very reassuring and mul tiple diagnoses are considered including COVID, flu, pneumonia among others. Respiratory swab is positive for RSV. Chest x-ray suggest the possibility of an infiltrate and for this reason she is covered with doxycycline. She shows no signs of significant respiratory distress, is not hypoxemic or using accessory muscles. No indication for hospitalization or further workup at this time. Return precautions given and questions answered to her apparent satisfaction Discharge Plan Departure Patient Disposition: Home Clinical Impression: Upper respiratory infection, viral, Atypical pneumonia Instructions: DI for Viral Upper Respiratory Infection -- Adult Activity Restrictions/Additional Instructions: *You have been diagnosed with [various symptoms due to viral upper respiratory infection (RSV) *What to do: *Please consider the use of sqoz-aol-wbbdvxb antihistamines such as cetir izine syrup which can dry the secretions that are causing many of these symptoms. As we discussed, a tsp of honey is a great option to help with cough if needed. * your history and physical exam are very reassuring and there is no indication that the symptoms are due to a bacterial infection, therefore there is no indication for antibiotics. *Please follow up with your primary care provider in 2-3 days, call for an appointment. Let them know you were seen in the Emergency Department and that we ask that you be seen in follow up. We will electronically transmit a record of today's note if your PCP is in our system *Return to Emergency Department if you should have any new, worsening or concerning symptoms increased work of breathing with flaring of nostrils, using belly to breathe, persistent vomiting, or other bothersome symptoms Prescriptions: New benzonatate 200 mg capsule 200 mg PO BID PRN (Reason: cough) Qty: 20 0RF doxycycline hyclate 100 mg tablet 100 mg PO BID Qty: 20 0RF codeine-guaifenesin 10-200 mg/5 mL liquid 5 ml PO Q4-6H PRN (Reason: cough) Qty: 473 0RF No Action albuterol sulfate 1.25 mg/3 mL solution for nebulization 1.25 mg inhalation Q4-6H PRN (Reason: shortness of breath or wheezing) Qty: 75 0RF omeprazole 40 MG capsule,delayed release(DR/EC) 40 mg PO DAILY Qty: 0 montelukast 10 MG tablet 10 mg PO QDAY Qty: 0 albuterol sulfate [Ventolin HFA] 90 MCG/PUFF HFA aerosol inhaler 2 puff INH Qty: 0 levocetirizine 5 MG tablet 5 mg PO QDAY Qty: 0 atorvastatin [Lipitor] 20 MG tablet 20 mg PO HS Qty: 0 theophylline 100 MG tablet extended release 12 hr 300 mg PO BID Qty: 0 celecoxib 200 mg capsule 200 mg PO DAILY Qty: 30 2RF epinephrine [EpiPen 2-Chinedu] 0.3 mg/0.3 mL auto-injector 0.3 mg IM Q5-15M PRN (Reason: anaphylaxis) Qty: 2 1RF Rx Instructions: do not exceed 3 doses per episode fluticasone propion-salmeterol [Advair Diskus] 250-50 mcg/dose blister with device 1 inh inhalation BID Qty: 60 5RF losartan-hydrochlorothiazide 50-12.5 mg tablet 1 tab PO DAILY Qty: 90 3RF Rx Instructions: Half tablet per day for the 1st 4 days then advanced to 1 per day Referrals: Trey El DO [Primary Care Provider] - Visit Report Forms: Patient Portal/API
--- NOTE | 2022-02-20 04:15 | PC.NURSE ---
RT at bedside for evaluation
--- NOTE | 2022-02-20 04:33 | PC.NURSE ---
To radiology via w/c
--- NOTE | 2022-02-20 04:37 | PC.NURSE ---
returns to the room from radiology via w/c
--- NOTE | 2022-02-20 04:39 | PC.NURSE ---
MD to bedside
[2022-02-20 05:13] LABS: COVID-19 CEPHEID 4-PLEX PCR Negative (Negative); Influenza A - CEPHEID Flu A NEGATIVE (NEGATIVE); Influenza B - CEPHEID Flu B NEGATIVE (NEGATIVE); Respiratory Syncytial Virus POSITIVE (Negative)
--- NOTE | 2022-02-20 05:30 | PC.NURSE ---
Medicated at this time - to take the codeine with her at DC to be taken at home as pt is driving
[2022-02-20 05:50] VITALS: BP 189/78; PULSE 85; RESP 18; O2SAT 97
[2022-02-20] MEDS: ACETAMINOPHEN/CODEINE SOLN 5 ML SOLUTION 10 ML PO (05:59)
[2022-02-20] MEDS: DOXYCYCLINE HYCLATE 100 MG TABLET PO (05:59)
== END 2022-02-20 06:00 | disposition home or self-care (01) ==
PROVIDERS: Emergency Provider Emergency Medicine; PCP Family Medicine
DX: J06.9 Acute upper respiratory infection, unspecified (principal); B97.4 Respiratory syncytial virus as the cause of diseases classified elsewhere; Z20.822 Contact with and (suspected) exposure to COVID-19
CPT/HCPCS: 0241U; 71046; 99283

== ENCOUNTER → 2022-05-23 16:50 | Outpatient (CLI) | payer MEDICARE, SELFPAY ==
[2021-07-10 13:12] VITALS: BMI 37.4
[2022-05-23 17:33] LABS: Add Manual Diff / Slide Review NO; Basophils Absolute Auto 100 /uL (0-100); Eosinophils Absolute Auto 300 /uL (0-450); Eosinophils Percent Auto 3.2 % (2-4); Hematocrit 45.8 % (36-46); Hemoglobin 15.4 g/dL (12.0-16.0); Lymphocytes Absolute Auto 2300 /uL (1100-4500); Lymphocytes Percent Auto 26.1 % (25-40); Mean Corpuscular HGB Conc 33.7 % (30-36); Mean Corpuscular Hemoglobin 29.1 PG (26-34); Mean Corpuscular Volume 86.5 fL (80-100); Monocytes Absolute Auto 700 /uL (0-900); Monocytes Percent Auto 8.5 % (3-14); Neutrophils Absolute Auto 5300 /uL (1500-7000); Neutrophils Percent Auto 61.2 % (50-75); Platelet Count 225 X10^3/uL (150-400); Red Blood Cell Count 5.29 X10^6/uL (4.0-5.2); Red Cell Distribution Width 13.1 % (11.6-14.8); White Blood Cell Count 8.7 X10^3/uL (4.5-11.0)
[2022-05-23 17:48] LABS: Hemoglobin A1C% w Est Avg Glu 5.6 % (4.0-6.0)
[2022-05-23 17:56] LABS: Alanine Aminotransferase 15 IU/L (<35); Albumin 4.5 g/dL (3.5-5.0); Albumin Globulin Ratio 1.4 (1.0-2.8); Alkaline Phosphatase 57 U/L (38-126); Aspartate Aminotransferase 19 IU/L (14-36); BUN Creatinine Ratio 27.9 (6-22); Bilirubin Total 0.3 mg/dL (0.2-1.3); Blood Urea Nitrogen 17 mg/dL (7-17); Calcium 9.3 mg/dL (8.4-10.2); Carbon Dioxide 30 mmol/L (22-32); Chloride 102 mmol/L (98-107); Cholesterol 174 mg/dL (140-199); Estimated Glomerular Filt Rate > 60 mL/min (>60); Globulin 3.2 g/dL (1.7-4.1); Glucose 100 mg/dL (80-110); HDL Cholesterol 62 mg/dL (40-60); HEMOLYSIS 19 (0-50); LDL Cholesterol Calculated 86 mg/dL (<100); Potassium 3.8 mmol/L (3.4-5.1); Sodium 139 mmol/L (137-145); Total Protein 7.7 g/dL (6.3-8.2); Triglycerides 131 mg/dL (35-150)
[2022-05-23 18:38] LABS: TSH w/ Reflex to FT4 1.65 uIU/mL (0.47-4.68)
== END ==
PROVIDERS: PCP Family Medicine; Referring Provider Family Medicine; Visit Provider Family Medicine
DX: E78.5 Hyperlipidemia, unspecified (principal); R73.9 Hyperglycemia, unspecified; I10 Essential (primary) hypertension; M96.1 Postlaminectomy syndrome, not elsewhere classified
CPT/HCPCS: 36415; 80053; 80061; 83036; 84443; 85025

== ENCOUNTER → 2022-06-13 08:35 | Outpatient (CLI) | payer MEDICARE, SELFPAY ==
[2021-07-10 13:12] VITALS: BMI 37.4
== END ==
PROVIDERS: PCP Family Medicine; Referring Provider Podiatrist; Visit Provider Podiatrist
DX: Z01.818 Encounter for other preprocedural examination (principal)
CPT/HCPCS: 93005

== ENCOUNTER 2022-07-01 10:37 | Day surgery (SDC) | payer MEDICARE, SELFPAY ==
[2021-07-10 13:12] VITALS: BMI 37.4
[2022-06-30 10:53] VITALS: BMI 38.9
--- NOTE | 2022-07-01 | PATH_ITS ---
[facility] Accession Number: [id number] No. of containers..01 Tissue . 01 Material submitted: . foot - RIGHT FOOT KERATODERMA . 01 Diagnosis: Right Foot, Biopsy: Acanthosis, papillomatosis, parakeratosis, verrucous surface changes, dermal scarring, inflammation, and foreign body giant cell reaction to ruptured hair shafts, suggestive of ruptured folliculitis. . Note: The differential diagnosis includes an irritated verruca vulgaris with concomitant healing ruptured folliculitis, changes secondary to local trauma, and a variant of keratoderma. Initial and deeper levels were examined in an effort to better define this process. PAS stain is negative for fungal hyphae. Clinicopathological correlation is advised for definitive diagnosis. MRV 07/07/2022 1744 Local . 01 Electronically signed: . Arlene Dang MD, Dermatopathologist NPI- [id number] . 01 Gross description: . RIGHT FOOT KERATODERMA: Received in formalin is 1 fragment of vega soft tissue measuring 0.9 x 0.6 x 0.7 cm. Tissue is inked. Specimen is sectioned and submitted in its entirety in 1 cassette. /ANNETTE 07/04/20221910 Local . 01 Pathologist provided ICD-10: B07.9 . 01 CPT . 565713, [id number] Specimen Comment: A courtesy copy of this report has been sent to [phone] Performed at: 01 [facility] [address] [place] [address], [place], [place] [id number] MD Demond Hutchison MD Phone: [phone]
[2022-07-01 11:20] VITALS: BMI 38.9
[2022-07-01 11:32] VITALS: BP 138/77; PULSE 78; RESP 20; TEMP 36.3; O2SAT 98
[2022-07-01] MEDS: LACTATED RINGERS 1,000 ML 42 ML IV (11:45)
[2022-07-01] MEDS: ACETAMINOPHEN 325 MG TABLET 650 MG PO (11:47)
--- NOTE | 2022-07-01 12:13 | PM.PREOP ---
Pre-operative Note Interval Note History & Physical reviewed/Exam performed by Physician: Yes Changes to H&P: No
--- NOTE | 2022-07-01 12:14 | PM.OP.1 ---
Operative Date/Time/Diagnoses Date of procedure: 07/01/22 Time of procedure: 12:30 Pre-op diagnosis: 1. Left great toe ingrown nail 2. Right plantar foot nodule, suspect foreign body Post-op diagnosis: other (1. Left great toe ingrown nail, 2. Right intractable keratoderma) Procedure & Clinicians Procedure: 1. Right foot excision plantar mass, suspect keratoderma 2. Left great toenail total chemical matrixectomy Same procedure as scheduled: Yes Indications: 72-year-old female with concern of painful left great toenail and recurrent painful lesion on the bottom of the right foot which has suspicion for possible scar versus foreign body retention. Conservative measures have failed to alleviate these issues and she was to have surgical intervention at this time on both feet. We spoke of the risks, potential complications, alternatives, and expected outcomes of the procedures. Consent was signed and there were no contraindications to the procedures at this time. Surgeon: Sherri Donohue Click Yes if Unassisted: Yes Anesthesia Type: General Operative Notes Closure Type: not applicable Specimen(s): other (Right plantar foot keratoderma sent to pathology for identification) Estimated Blood Loss (mL): 3 Blood products transfused: none Tourniquet time (min): 5 Procedure in detail: Patient was brought to the operating room and placed on the operative table in supine position. Following induction of monitored anesthesia care with sedation by the anesthesiologist, the recorded injectables were delivered to the patient's feet. The feet were prepped and draped in the usual aseptic manner. RIGHT FOOT: After check of anesthesia two full-thickness semi-elliptical incisions were made around the prominent keratoderma lesion plantar metatarsal head area #2 into 3. This lesion within the skin was excised and passed from the field. It appeared to show no foreign bodies and was not verrucoid in it's tissue. It was passed from the operative table and sent to Pathology for identification. The deep tissues were evaluated and noted to be clean and clear of necrosis or foreign substance. The area was irrigated with copious amounts of normal sterile saline. Skin and subcutaneous tissue was revised to allow for appropriate closure. Vessels were cauterized and ligated as necessary. 3-0 nylon was used for the skin closure. LEFT FOOT: After check of anesthesia, a [place] drain was placed about the left hallux, which initiated the tourniquet start time. The hallux nail was removed gently in total using a [place] elevator. The surrounding skin was protected with triple antibiotic ointment and a series of 4 applications of phenol at 30 sec each were placed in the area. Following each the area was curetted and after the last was rinsed with alcohol. The [place] tourniquet was removed, a prompt hyperemic response was seen to the toe. The area was cleaned and dressed with triple antibiotic ointment, Xeroform, 4x4s, and gently placed coban. Sterile dressing placed on the left foot. Both feet were dressed with stockinette. Complications: none Post-operative Disposition: PACU Plan for aftercare: Following a period of postoperative monitoring, the patient will be discharged to home on written and oral postoperative instructions including keeping the right foot dressing dry and intact, and the left great toe soaks will start tomorrow. Very detailed instructions have been given ahead of today and reviewed then and again today. Very limited weight to the right foot until skin sutures removed. No ice to the feet. DVT prevention techniques have been reviewed. For the right foot, the 1st postoperative visit the dressing will be changed and close to the 3rd postoperative week we will likely remove the sutures.
[2022-07-01] MEDS: CLINDAMYCIN 600 MG/50 ML PIGGYBACK 50 MG IV (13:30)
--- NOTE | 2022-07-01 13:43 | SUR.OPER ---
Supine on padded OR bed, head on pillow, arms secured on padded arm boards at <90 degrees abduction, legs uncrossed, safety belt at thigh, tape over blanket over lower legs.
[2022-07-01] MEDS: BUPIVACAINE 0.5% (PF) 30 ML, EPINEPHrine 0.15 MG INJ ×2 (13:49)
[2022-07-01 14:15] VITALS: BP 135/53; PULSE 84; RESP 10; O2SAT 96
[2022-07-01 14:20] VITALS: BP 153/60; PULSE 84; RESP 14; O2SAT 96
[2022-07-01 14:27] VITALS: BP 140/85; PULSE 83; RESP 16; TEMP 36.6; O2SAT 97
== END 2022-07-01 15:14 | disposition home or self-care (01) ==
PROVIDERS: PCP Family Medicine; Referring Provider Podiatrist; Visit Provider Podiatrist
PROC: 0HTRXZZ Resection of Toe Nail, External Approach (ICD-10-PCS; CPT 11750; principal; 2022-07-01 12:30)
DX: L60.0 Ingrowing nail (principal); L60.3 Nail dystrophy; L84 Corns and callosities
CPT/HCPCS: 11750; 11055; J0171; J2250; J2704; J3010

== ENCOUNTER → 2022-11-30 09:53 | Outpatient (CLI) | payer MEDICARE, SELFPAY ==
[2021-07-10 13:12] VITALS: BMI 37.4
--- NOTE | 2022-11-30 09:54 | DI.RAD.S_ITS ---
PROCEDURE: XR ANKLE LT MIN 3V INDICATIONS: Left ankle pain TECHNIQUE: 3 views of the ankle were acquired. COMPARISON: None. FINDINGS: Bones: No fractures or dislocations. Ankle mortise is normally aligned. No suspicious bony lesions. Plantar calcaneal spur present. Soft tissues: No tibiotalar joint effusion. IMPRESSION: No acute osseous abnormality. If symptoms persist, follow-up radiographs and/or CT or MRI may be helpful for further evaluation. Dictated by: Ulices De Jesus M.D. on 11/30/2022 at 14:21 Approved by: Ulices De Jesus M.D. on 11/30/2022 at 14:23
== END ==
PROVIDERS: PCP Family Medicine; Referring Provider Nurse Practitioner Family; Visit Provider Nurse Practitioner Family
DX: M25.572 Pain in left ankle and joints of left foot (principal)
CPT/HCPCS: 73610

== ENCOUNTER → 2023-05-17 14:48 | Outpatient (CLI) | payer MEDICARE, SELFPAY ==
[2021-07-10 13:12] VITALS: BMI 37.4
[2023-05-17 15:57] LABS: Influenza A - CEPHEID Flu A NEGATIVE (NEGATIVE); Influenza B - CEPHEID Flu B NEGATIVE (NEGATIVE); Respiratory Syncytial Virus Negative (Negative)
[2023-05-17 16:32] LABS: COVID-19 CEPHEID 4-PLEX PCR Negative (Negative)
== END ==
PROVIDERS: PCP Family Medicine; Visit Provider Physician Assistant
DX: R05.9 Cough, unspecified (principal)
CPT/HCPCS: 0241U

== ENCOUNTER 2023-05-29 08:51 | Emergency (ER) | payer MEDICARE, SELFPAY ==
[2021-07-10 13:12] VITALS: BMI 37.4
[2023-05-29] VITALS (11 sets, daily range): BP systolic 165–201; BP diastolic 72–94; PULSE 75–106; RESP 19–34; TEMP 36.8; O2SAT 93–97; BMI 36.8
--- NOTE | 2023-05-29 08:53 | ED_ITS ---
HPI - SOB/Dyspnea General Chief Complaint: Shortness of Breath/Dyspnea Stated Complaint: difficulty breathing Time Seen by Provider: 05/29/23 08:53 Source: patient, RN notes reviewed and old records reviewed Mode of arrival: Family Vehicle Limitations: no limitations History of Present Illness HPI Narrative: 72-year-old female with history of asthma, dyslipidemia, hypertension on theophylline who presents with complaint of persistent cough and difficulty with breathing. Patient states she has had about a week of dry nonproductive cough and tightness in her chest. Patient states the tightness feels like her asthma but she has not had any improvement with albuterol. She has been using nebulizers Q 4-6 hours. Patient states she has not gotten any relief with this. She states no fevers. She has had some postnasal drip. States that she feels very tight substernally, and into her back. Denies any nausea or vomiting. Does feel short of breath. States cough is nonproductive. Denies any diarrhea or constipation, no urinary symptoms. No new swelling in extremities. She has not had any recent medication changes. States that she does not normally use her albuterol on a regular basis. She does have Flovent. She is on theophylline daily states no new medication changes she believes this is for her asthma. Patient states no tobacco history, occasional alcohol, no recreational drugs. She has had hip and back surgery in the past but no cardiac or pulmonary surgeries. States allergic to penicillin and aspirin but does not recall the reaction. Dr. El is her primary care physician. Home medication list includes montelukast, albuterol, Flovent, losartan/HCTZ, atorvastatin, theophylline, Elsah, gabapentin. Related Data Home Medications Medication Instructions Recorded Confirmed atorvastatin 20 mg tablet (Lipitor) 20 mg PO HS ##0 10/29/16 05/17/23 montelukast 10 mg tablet 10 mg PO QDAY ##0 10/29/16 05/17/23 omeprazole 40 mg capsule,delayed 40 mg PO DAILY ##0 10/29/16 05/17/23 release collagen peptides PO 05/23/22 05/17/23 gabapentin 300 mg capsule 300 mg PO BID 05/23/22 05/17/23 mecobalamin (vitamin B12) 100 ml PO 05/23/22 05/17/23 zkpxrkvuucyz-bqot-rqvzv acid 1 tab PO 05/23/22 05/17/23 [Centrum Women] theophylline 300 mg 300 mg PO 05/23/22 05/17/23 tablet,extended release,12 hr acetaminophen 500 mg capsule 500 mg PO Q6H PRN 01/20/23 05/17/23 Previous Rx's Medication Instructions Recorded epinephrine 0.3 mg/0.3 mL 0.3 mg (0.3 mL) IM Q5-15M PRN 09/27/21 injection, auto-injector (EpiPen anaphylaxis #2 ea 2-Chinedu) losartan 50 mg-hydrochlorothiazide 1 tab PO DAILY #90 tabs 12/20/22 12.5 mg tablet hydrocodone 5 mg-acetaminophen 325 1 tab PO BEDTIME PRN pain #30 tabs 05/05/23 mg tablet albuterol sulfate 90 mcg/actuation 2 puff inhalation Q4-6H PRN 05/17/23 aerosol inhaler shortness of breath or wheezing #8.5 grams fluticasone propionate 110 1 puff inhalation BID #12 grams 05/17/23 mcg/actuation HFA aerosol inhaler albuterol sulfate 2.5 mg/3 mL 2.5 mg (3 mL) inhalation Q4H PRN 05/29/23 (0.083 %) solution for nebulization shortness of breath or wheezing #90 mL epinephrine 0.3 mg/0.3 mL 0.3 mg (0.3 mL) IM Q5-15MIN PRN 05/29/23 injection, auto-injector (EpiPen anaphylaxis #2 ea 2-Chinedu) prednisone 10 mg tablets in a dose See Rx Instructions PO .COMPLEX 05/29/23 pack #21 ea Allergies Allergy/AdvReac Type Severity Reaction Status Date / Time aspirin [ASPIRIN] Allergy Unknown Verified 05/17/23 14:27 egg [EGG] Allergy Unknown Verified 05/17/23 14:27 Penicillins [PENICILLINS] Allergy Unknown Verified 05/17/23 14:27 shellfish derived Allergy Unknown Verified 05/17/23 14:27 [SHELLFISH DERIVED] iodine Allergy Verified 05/17/23 14:27 Review of Systems Review of Systems ROS Unobtainable: All systems reviewed & are unremarkable except as noted in HPI and below Patient History Medical History Edema Sciatica Arthritis Depression Peptic ulcer disease Cervicalgia History of ectopic Hemangioma Hyperlipidemia Lumbar post-laminectomy syndrome Hyperglycemia Bronchitis Asthma Hypertension Back pain Asthma History of smoking Liver hemangioma Seasonal allergies COPD (chronic obstructive pulmonary disease) Surgical History History of mastectomy History of total left hip replacement History of total right hip replacement History of parotidectomy History of surgery of liver History of back surgery History of hysterectomy Family History Mother Mitral valve disorder Social History household members: none Smoking Status: Never smoker alcohol intake: current Smoking Status: Never smoker alcohol intake frequency: holidays/special occasions only Substance Use Type: does not use Exam Narrative Exam Narrative: GEN: well nourished, well appearing female, alert and oriented x 3, patient appears to be in moderate distress. HEENT: Atraumatic, pupils are equal round reactive to light, extraocular movements are intact, nares are clear, there is no conjunctival pallor. Throat is clear without any exudates, erythema, tonsillar enlargement or uvular deviation HEART: Regular rate and rhythm without murmur, clicks, rubs. Pulses are equal in upper and lower extremities. Edema bilateral lower extremities. LUNGS:Lungs decreased bilaterally, no wheezes, rales, crackles, chest moves symmetrically, patient has very dry persistent cough. No accessory muscle use. ABD:bowel sounds normal, soft, non-tender, no guarding, rebound, rigidity, no masses noted, no hepatosplenomegaly :No CVA tenderness MSCL: Non-tender, no muscle atrophy, muscles strength 5/5 upper and lower extremities, full range of motion, normal gait NEURO:CN 2-12 intact, sensation normal. SKIN: No rash, no erythema or other skin changes. Initial Vital Signs Initial Vital Signs: Vital Signs Pulse Rate 90 05/29/23 08:56 Respiratory Rate 25 H 05/29/23 08:56 Pulse Oximetry 97 05/29/23 08:56 Course Orders Ordered: ED Orders 05/29/23 08:55 Respiratory Panel (Film Array) Stat 05/29/23 09:05 Complete Blood Count AUTO DIFF Stat Comprehensive Metabolic Panel Stat Lipase Stat NT-proBNP (BNP-Adult 18+) Stat PTT Partial Thromboplastin Ryan Stat Procalcitonin Stat Prothrombin Time INR Stat Troponin & CK Cardiac Panel Stat 05/29/23 09:06 XR chest 1V Stat EKG-12 Lead Stat Discontinued Medications Albuterol (Albuterol 2.5 Mg/3 Ml Neb (Adult)) 20 mg INH NOW ONE Stop: 05/29/23 09:07 Last Admin: 05/29/23 09:13 Dose: 20 mg Documented By: EDITH Albuterol/Ipratropium (Albuterol/Ipratropium 3 Ml Ampul) 3 ml INH NOW ONE Stop: 05/29/23 09:07 Last Admin: 05/29/23 09:14 Dose: 3 ml Documented By: EDITH Methylprednisolone (Methylprednisolone 125 Mg/2 Ml Vial) 125 mg IV NOW ONE Stop: 05/29/23 09:07 Last Admin: 05/29/23 09:12 Dose: 125 mg Documented By: VIN Vital Signs Vital signs: Vital Signs - 8 hr 05/29/23 08:56 05/29/23 08:57 05/29/23 08:57 Temperature 98.3 F Pulse Rate 90 85 87 Respiratory Rate 25 H 22 32 H Blood Pressure 201/94 H Pulse Oximetry 97 93 95 Oxygen Delivery Method Room Air Fraction of Inspired Oxygen 05/29/23 09:00 05/29/23 09:00 05/29/23 09:16 Temperature Pulse Rate 82 80 Respiratory Rate 28 H 24 Blood Pressure 167/78 H Pulse Oximetry 94 96 Oxygen Delivery Method Room Air Fraction of Inspired Oxygen 20 05/29/23 09:30 05/29/23 09:30 05/29/23 10:00 Temperature Pulse Rate 75 Respiratory Rate Blood Pressure 181/79 H 165/72 H Pulse Oximetry 94 Oxygen Delivery Method Fraction of Inspired Oxygen 05/29/23 10:00 05/29/23 10:30 05/29/23 10:30 Temperature Pulse Rate 90 106 H Respiratory Rate 19 Blood Pressure 168/76 H Pulse Oximetry 93 96 Oxygen Delivery Method Fraction of Inspired Oxygen 05/29/23 11:00 05/29/23 11:01 05/29/23 11:01 Temperature Pulse Rate 100 H 101 H Respiratory Rate 34 H 25 H Blood Pressure 166/72 H Pulse Oximetry 93 94 Oxygen Delivery Method Fraction of Inspired Oxygen 05/29/23 11:30 05/29/23 11:30 05/29/23 12:00 Temperature Pulse Rate 98 H Respiratory Rate 30 H Blood Pressure 174/78 H 170/81 H Pulse Oximetry 97 Oxygen Delivery Method Room Air Fraction of Inspired Oxygen 05/29/23 12:00 Temperature Pulse Rate 97 H Respiratory Rate 26 H Blood Pressure Pulse Oximetry 97 Oxygen Delivery Method Fraction of Inspired Oxygen MDM - SOB/Dyspnea Lab Data 05/29/23 09:05 05/29/23 09:05 Labs: Lab Results 05/29/23 05/29/23 Range/Units 08:55 09:05 WBC 8.1 (4.5-11.0) X10^3/uL RBC 4.71 (4.0-5.2) X10^6/uL Hgb 14.5 (12.0-16.0) g/dL Hct 41.9 (36-46) % MCV 89.0 (80-100) fL MCH 30.8 (26-34) PG MCHC 34.6 (30-36) % RDW 12.8 (11.6-14.8) % Plt Count 228 (150-400) X10^3/uL Neut % (Auto) 57.4 (50-75) % Lymph % (Auto) 27.7 (25-40) % Alpine % (Auto) 8.9 (3-14) % Eos % (Auto) 4.8 H (2-4) % Baso % (Auto) 1.2 (0-2) % Neut # (Auto) 4600 (6901-8883) /uL Lymph # (Auto) 2200 (8698-7947) /uL Alpine # (Auto) 700 (0-900) /uL Eos # (Auto) 400 (0-450) /uL Baso # (Auto) 100 (0-100) /uL PT 11.4 (9.4-12.5) SECONDS INR 1.0 (0.9-1.3) APTT 29 (25.1-36.5) SECONDS Sodium 140 (137-145) mmol/L Potassium 4.1 (3.4-5.1) mmol/L Chloride 107 (98-107) mmol/L Carbon Dioxide 26 (22-32) mmol/L BUN 15 (7-17) mg/dL Creatinine 0.64 (0.52-1.04) mg/dL Estimated GFR > 60 (>60) mL/min BUN/Creatinine Ratio 23.4 H (6-22) Glucose 100 (80-110) mg/dL Calcium 10.0 (8.4-10.2) mg/dL Total Bilirubin 0.8 (0.2-1.3) mg/dL AST 20 (14-36) IU/L ALT 12 (<35) IU/L Alkaline Phosphatase 50 (38-126) U/L Total Creatine Kinase 52 (30-135) U/L Troponin I < 0.012 (0.01-0.034) ng/mL NT-Pro-B Natriuret Pep 86 (<125) pg/mL Total Protein 7.5 (6.3-8.2) g/dL Albumin 4.3 (3.5-5.0) g/dL Globulin 3.2 (1.7-4.1) g/dL Albumin/Globulin Ratio 1.3 (1.0-2.8) Lipase 61 (23-300) U/L Procalcitonin 0.05 (<0.5) ng/mL Chlamy pneumoniae PCR Not detected (Not Detect) Adenovirus (PCR) Not detected (Not Detect) B.parapertussis DNA PCR Not detected (Not Detecte) Coronavirus OC43 (PCR) Not detected (Not Detect) Coronavirus HKU1 (PCR) Not detected (Not Detect) Coronavirus 229E (PCR) Not detected (Not Detect) SARS-CoV-2 (PCR) Not detected (Not Detecte) Coronavirus NL63 (PCR) Not detected (Not Detect) Human Metapneumovir PCR Not detected (Not Detect) Influenza Type A (PCR) Not detected (Not Detect) Influenza Type B (PCR) Not detected (Not Detect) M. pneumoniae (PCR) Not detected (Not Detect) Parainfluenza 1 (PCR) Not detected (Not Detect) Parainfluenza 2 (PCR) Not detected (Not Detect) Parainfluenza 3 (PCR) Not detected (Not Detect) Parainfluenza 4 (PCR) Not detected (Not Detect) RSV (PCR) Not detected (Not Detect) Entero/Rhino (PCR) Not detected (Not Detect) Imaging Data Chest x-ray: Radiologist's Impression: Close Chest X-Ray (Signed) Kel Toro - 05/29/23 Ankle X-Ray (Signed) Ulices De Jesus - 11/30/22 Chest X-Ray (Signed) KirkpatrickMontez vegafaraz - 02/20/22 Lumbar Spine MRI (Signed) Montez Kirkpatrickfaraz - 10/07/21 Lumbar Spine X-Ray (Signed) Jose Banksley - 07/21/21 Chest X-Ray (Signed) Huey Cain - 07/21/21 Echocardiogram Ultrasound (Signed) Mario Boinlla - 07/10/21 Telemetry Strips 07/10/21 Chest CTA (Signed) Nisha Desir - 07/09/21 Chest X-Ray (Signed) Nisha Desir - 07/09/21 Chest X-Ray (Signed) Jayy Mora - 07/08/21 Knee MRI (Signed) Demond Mata - 12/18/19 Vascular Ultrasound (Signed) Jose Rashid - 12/09/19 Lumbar Spine MRI (Signed) KirkpatrickMontez vegafaraz - 03/22/19 Launch?[place] [id number] XRay Report Signed Patient: Maria Ines Ferguson MR#: [id number] : 1950 Acct:[id number] Age/Sex: 72 / F Date of Service: 05/29/23 Loc: ED Accession Number: [id number] Procedure: XR chest 1V Ordering Provider: Maryanne Tracy D.O. PROCEDURE: XR CHEST 1V INDICATIONS: cough, tight chest. TECHNIQUE: One view of the chest was acquired. COMPARISON: [facility], , XR CHEST 2V, 02/20/2022, 4:29. [facility], , XR CHEST 2V, 07/21/2021, 10:43. FINDINGS: Surgical changes and devices: None. Lungs and pleura: Lungs are clear. No pleural effusions or pneumothorax. Mediastinum: Mediastinal contours appear normal. Heart size is normal. Bones and chest wall: No suspicious bony lesions. Overlying soft tissues appear unremarkable. IMPRESSION: No acute cardiopulmonary abnormality is seen. Dictated by: Kel Toro M.D. on 05/29/2023 at 9:37 Approved by: Kel Toro M.D. on 05/29/2023 at 9:37 ECG Data Attestation: I personally reviewed and interpreted this ECG as follows: Prior ECG tracings: not available for review Interpretation: Sinus rhythm rate of 78 NM 136 QRS is 78 QTC [address]. No acute ST elevation or depression. Patient has prior from 06/13/2022 with no acute changes. MDM Narrative Medical decision making narrative: 72-year-old female with asthma history sounds like she had a recent upper respiratory infection either exacerbating her asthma or causing possibly pneumonia patient has had increased shortness of breath she is more hypertensive initially, no hypoxia, no tachycardia. Patient is decreased bilaterally with minimal wheeze. Plan for steroids, nebs and evaluation with labs, EKG and chest x-ray as well as respiratory panel. Chest x-ray is negative for acute change Labs, white count 8, hemoglobin of 14, platelets of 228, coags are negative, sodium is 140 potassium is 4 1 chloride 107 CO2 of 26 BUN 15 creatinine 0.64, glucose of 100 with a negative LFTs, negative troponin and a BNP of 86 and a negative procalcitonin at 0.05 EKG EKG shows no acute changes. Respiratory panel is negative Recheck after steroids and nebs, patient is feeling improved. She only received about half of the nebulized albuterol so proximally 10 mg much has not improved. Reviewed all of her findings. Her albuterol is 3 or 4 years old the vial so we will refill this, start her on oral prednisone, she has Flovent which is up-to-date as well as an albuterol inhaler but does not have a spacer so we will provide this. She also notes her EpiPen as a couple years old she has not needed it but we will give her a printed script as well. Discussed return precautions all questions answered. Discharge Plan Departure Patient Disposition: Home Clinical Impression: Asthma exacerbation Activity Restrictions/Additional Instructions: Continue your home medications as prescribed. Take oral steroids until completed. I would replace your albuterol vials with a new prescription, you can use 1-2 vials every 4 hours as needed for wheezing or shortness of breath. Continue with your Flovent twice daily whether you feel good or bad. Prescription for EpiPen is also included in your paperwork. Your other prescriptions have been sent to [facility] in [place]. I hope you continue to feel improved, please return if you have recurrent chest pain or tightness, increasing shortness of breath, lightheadedness or passing out, coughing up blood, new swelling of extremities or other new or concerning changes. Prescriptions: New albuterol sulfate 2.5 mg /3 mL (0.083 %) solution for nebulization 2.5 mg inhalation Q4H PRN (Reason: shortness of breath or wheezing) Qty: 90 0RF prednisone 10 mg tablets,dose pack See Rx Instructions .ROUTE .COMPLEX Qty: 21 0RF Rx Instructions: Take 6 tablets p.o. x1 day, then 5 tablets p.o. x1 day, then 4 tablets p.o. x1 day, then 3 tablets p.o. x1 day, then 1 tablet p.o. x1 day epinephrine [EpiPen 2-Chiendu] 0.3 mg/0.3 mL auto-injector 0.3 mg IM Q5-15MIN PRN (Reason: anaphylaxis) Qty: 2 0RF No Action omeprazole 40 MG capsule,delayed release(DR/EC) 40 mg PO DAILY Qty: 0 montelukast 10 MG tablet 10 mg PO QDAY Qty: 0 atorvastatin [Lipitor] 20 MG tablet 20 mg PO HS Qty: 0 losartan-hydrochlorothiazide 50-12.5 mg tablet 1 tab PO DAILY Qty: 90 2RF Rx Instructions: DUE FOR APPT WITH PCP hydrocodone-acetaminophen 5-325 mg tablet 1 tab PO BEDTIME PRN (Reason: pain) Qty: 30 0RF epinephrine [EpiPen 2-Chinedu] 0.3 mg/0.3 mL auto-injector 0.3 mg IM Q5-15M PRN (Reason: anaphylaxis) Qty: 2 1RF Rx Instructions: do not exceed 3 doses per episode gabapentin 300 mg capsule 300 mg PO BID theophylline 300 mg tablet extended release 12 hr 300 mg PO mecobalamin (vitamin B12) PO uxcjprqnzfej-rlzj-aavue acid [Centrum Women] 1 tab PO collagen peptides PO acetaminophen 500 mg capsule 500 mg PO Q6H PRN albuterol sulfate 90 mcg/actuation HFA aerosol inhaler 2 puff inhalation Q4-6H PRN (Reason: shortness of breath or wheezing) Qty: 8.5 1RF Rx Instructions: INhale 2 puffs every 4-6 hours as needed. Use with spacer fluticasone propionate 110 mcg/actuation HFA aerosol inhaler 1 puff inhalation BID Qty: 12 1RF Rx Instructions: Inhale one puff twice daily for asthma exacerbation. Use with spacer and after Albuterol Referrals: Trey El DO [Primary Care Provider] - Stand Alone Forms: Patient Portal/API
--- NOTE | 2023-05-29 09:06 | DI.RAD.S_ITS ---
PROCEDURE: XR CHEST 1V INDICATIONS: cough, tight chest. TECHNIQUE: One view of the chest was acquired. COMPARISON: [facility], CR, XR CHEST 2V, 02/20/2022, 4:29. [facility], CR, XR CHEST 2V, 07/21/2021, 10:43. FINDINGS: Surgical changes and devices: None. Lungs and pleura: Lungs are clear. No pleural effusions or pneumothorax. Mediastinum: Mediastinal contours appear normal. Heart size is normal. Bones and chest wall: No suspicious bony lesions. Overlying soft tissues appear unremarkable. IMPRESSION: No acute cardiopulmonary abnormality is seen. Dictated by: Kel Toro M.D. on 05/29/2023 at 9:37 Approved by: Kel Toro M.D. on 05/29/2023 at 9:37
[2023-05-29] MEDS: methylPREDNISolone 125 MG/2 ML VIAL IV (09:12)
[2023-05-29] MEDS: ALBUTEROL 2.5 MG/3 ML NEB (ADULT) 20 MG INH (09:13)
[2023-05-29] MEDS: ALBUTEROL/IPRATROPIUM 3 ML AMPUL INH (09:14)
[2023-05-29 09:15] LABS: Add Manual Diff / Slide Review NO; Basophils Absolute Auto 100 /uL (0-100); Basophils Percent Auto 1.2 % (0-2); Eosinophils Absolute Auto 400 /uL (0-450); Eosinophils Percent Auto 4.8 % (2-4); Hematocrit 41.9 % (36-46); Hemoglobin 14.5 g/dL (12.0-16.0); Lymphocytes Absolute Auto 2200 /uL (1100-4500); Lymphocytes Percent Auto 27.7 % (25-40); Mean Corpuscular HGB Conc 34.6 % (30-36); Mean Corpuscular Hemoglobin 30.8 PG (26-34); Monocytes Absolute Auto 700 /uL (0-900); Monocytes Percent Auto 8.9 % (3-14); Neutrophils Absolute Auto 4600 /uL (1500-7000); Neutrophils Percent Auto 57.4 % (50-75); Platelet Count 228 X10^3/uL (150-400); Red Blood Cell Count 4.71 X10^6/uL (4.0-5.2); Red Cell Distribution Width 12.8 % (11.6-14.8); White Blood Cell Count 8.1 X10^3/uL (4.5-11.0)
[2023-05-29 09:25] LABS: Alanine Aminotransferase 12 IU/L (<35); Albumin 4.3 g/dL (3.5-5.0); Albumin Globulin Ratio 1.3 (1.0-2.8); Alkaline Phosphatase 50 U/L (38-126); Aspartate Aminotransferase 20 IU/L (14-36); BUN Creatinine Ratio 23.4 (6-22); Bilirubin Total 0.8 mg/dL (0.2-1.3); Blood Urea Nitrogen 15 mg/dL (7-17); Carbon Dioxide 26 mmol/L (22-32); Chloride 107 mmol/L (98-107); Creatine Kinase 52 U/L (30-135); Estimated Glomerular Filt Rate > 60 mL/min (>60); Globulin 3.2 g/dL (1.7-4.1); Glucose 100 mg/dL (80-110); HEMOLYSIS 36 (0-50); Lipase 61 U/L (23-300); Potassium 4.1 mmol/L (3.4-5.1); Prothrombin Time 11.4 SECONDS (9.4-12.5); Sodium 140 mmol/L (137-145); Total Protein 7.5 g/dL (6.3-8.2)
[2023-05-29 09:28] LABS: PTT Partial Thromboplastin Tim 29 SECONDS (25.1-36.5)
[2023-05-29 09:34] LABS: NT-proBNP (BNP-Adult 18+) 86 pg/mL (<125)
[2023-05-29 09:38] LABS: Troponin I < 0.012 ng/mL (0.01-0.034)
[2023-05-29 09:42] LABS: Procalcitonin 0.05 ng/mL (<0.5)
[2023-05-29 10:05] LABS: Adenovirus Not Detected (Not Detect); B. parapertussis Not Detected (Not Detecte); Bordetella pertussis Not Detected (Not Detect); Chlamydophila pneumoniae Not Detected (Not Detect); Coronavirus 229E Not Detected (Not Detect); Coronavirus HKU1 Not Detected (Not Detect); Coronavirus NL 63 Not Detected (Not Detect); Coronavirus OC43 Not Detected (Not Detect); Human Metapneumovirus Not Detected (Not Detect); Human Rhinovirus/Enterovirus Not Detected (Not Detect); Influenza A Not Detected (Not Detect); Influenza B Not Detected (Not Detect); Mycoplasma pneumoniae Not Detected (Not Detect); Parainfluenza Virus 1 Not Detected (Not Detect); Parainfluenza Virus 2 Not Detected (Not Detect); Parainfluenza Virus 3 Not Detected (Not Detect); Parainfluenza Virus 4 Not Detected (Not Detect); Respiratory Syncytial Virus Not Detected (Not Detect); SARS- CoV-2 Not Detected (Not Detecte)
== END 2023-05-29 12:10 | disposition home or self-care (01) ==
PROVIDERS: Emergency Provider Emergency Medicine; PCP Family Medicine
DX: J45.901 Unspecified asthma with (acute) exacerbation (principal); R07.9 Chest pain, unspecified; Z20.822 Contact with and (suspected) exposure to COVID-19
CPT/HCPCS: 36415; 71045; 80053; 82550; 83690; 83880; 84145; 84484; 85025; 85610; 85730; 87633; 93005; 94640; 96374; 99284; J2919; J7613

== ENCOUNTER → 2023-06-29 15:06 | Outpatient (CLI) | payer MEDICARE, SELFPAY ==
[2021-07-10 13:12] VITALS: BMI 37.4
--- NOTE | 2023-06-29 15:08 | DI.CT.S_ITS ---
PROCEDURE: CT CHEST WO CON INDICATIONS: ongoing chronic cough TECHNIQUE: Noncontrast 5 mm thick sections acquired from the pulmonary apices to the posterior costophrenic angles. 1 mm lung window, 5 mm thick coronal and sagittal and 7 mm axial MIP reformats were then acquired. For radiation dose reduction, the following was used: automated exposure control, adjustment of mA and/or kV according to patient size. COMPARISON: [facility], CT, CT ANGIO CHEST PE PROTOCOL, 07/09/2021, 22:25. FINDINGS: Image quality: Diagnostic. Lower Neck: No enlarged lymph nodes. Thyroid: No thyroid nodules which require sonographic follow up, per consensus guidelines. Axillae: No enlarged lymph nodes. Chest Wall: Unremarkable. Visualized portions of the bilateral breast implants are grossly intact. Bones: Unremarkable. Lungs and Pleura: No pneumothorax or pleural effusions. No consolidation or suspicious nodules. Heart: Heart size is normal. There is a moderate-sized low-density pericardial effusion. Thoracic Vessels: The aorta and pulmonary arteries demonstrate normal size. Scattered atheromatous calcifications are present within the aortic arch. Mediastinum and Julia: No enlarged lymph nodes. Esophagus: No wall thickening. No hiatal hernia. Upper Abdomen: Visualized upper abdomen solid organs and bowel loops appear normal. IMPRESSION: 1. No acute airspace opacities or suspicious pulmonary nodules which require follow-up. No findings to explain chronic cough. 2. Thoracic aortic atherosclerosis. 3. Moderate sized low-density pericardial effusion. This is new when compared with the prior CT of the chest dated July 09, 2021. Dictated by: Evelin Robin M.D. on 06/29/2023 at 16:34 Approved by: Evelin Robin M.D. on 06/29/2023 at 16:37
== END ==
LOC: CT 15:07
PROVIDERS: PCP Family Medicine; Referring Provider Family Medicine; Visit Provider Family Medicine
DX: J20.9 Acute bronchitis, unspecified (principal); R05.3 Chronic cough
CPT/HCPCS: 71250

== ENCOUNTER → 2023-10-24 14:48 | Outpatient (CLI) | payer MEDICARE, SELFPAY ==
[2021-07-10 13:12] VITALS: BMI 37.4
--- NOTE | 2023-10-24 14:53 | DI.ECHO.S_ITS ---
[facility]---------+ [facility] : : [address] : [place] : : [id number] : : Phone: [phone] Echocardiogram Report + + :Name: URIEL LANG Study Date: 10/24/2023 Height: 63 in : :Hospital ReadingLocation: Weight: 203 lb : : Gender: Female BSA: 1.9 m2 : :: 1950 Age: 73 yrs BP: 161/100 mmHg: :Reason For Study: EVAL PERICARDIAL EFFUSION : :Ordering Physician: SHAHEEN, : :JENIFER Performed By: Jose Castellon : :Referring: JENIFER JAMISON : + + Interpretation Summary 1) Normal left ventricular thickness, size, wall motion, and systolic function (EF 60-65%). 2) Normal right ventricular size and function. 3) Diastolic parameters suggest a pseudonormalization pattern, consistent with probable elevated filling pressures. 4) No significant valvular abnormalities. 5) Compared to the Echo done 07/11/2021, no pericardial effusion is presenton this study. Procedure: A two-dimensional transthoracic echocardiogram with color flow and Doppler was performed. The study quality was technically difficult. Comparison is made with the echocardiogram of 07/11/2021. The patient was in sinus rhythm with heart rates between 70-78 bpm during the exam. Left Ventricle: The left ventricle is normal in size and wall thickness. The ejection fraction is estimated to be 60-65%. Left ventricular systolic function appears normal without focal wall motion abnormalities. Diastolic parameters suggest a pseudonormalization pattern, consistent with probable elevated filling pressures. Right Ventricle: The right ventricle is normal size. The right ventricular systolic function is normal. Atria: The left atrial size is normal. Right atrial size is normal. The interatrial septum grossly appears intact with no obvious evidence for an atrial septal defect. Mitral Valve: The mitral valve is grossly normal. There is no mitral valve stenosis. There is no mitral regurgitation noted. Aortic Valve: The aortic valve is not well visualized. There is no aortic valve stenosis. No aortic regurgitation is present. Tricuspid Valve: The tricuspid valve is not well visualized. There is no tricuspid stenosis. No tricuspid regurgitation. Pulmonic Valve: The pulmonic valve is not well visualized. There is no pulmonic valvular stenosis. There is no pulmonic valvular regurgitation. Great Vessels: The aortic root is normal size. The dimensions of the ascending aorta are normal. The IVC is of normal diameter and collapses greater than 50% with a sniff. This suggests a low right atrial pressure of 3 mm Hg. Pericardium/ Pleura There is no pericardial effusion. There is no pleural effusion. MMode/2D Measurements & Calculations LVIDd: 4.7 cm LVOT diam: 2.0 cm LVIDs: 2.8 cm Ao root diam: 3.6 cm FS: 40.4 % asc Aorta Diam: 3.0 cm IVSd: 0.88 cm LVPWd: 1.1 cm LV jerez. diameter/BSA (cm/m^2): 2.4 LV sys. diameter/BSA (cm/m^2): 1.4 LA A2 area: 22.6 cm2 RA long axis: 5.0 cm LA A4 area: 22.7 cm2 RA area: 12.9 cm2 LA length (vol): 5.8 cm RA vol: 28.7 ml LA vol: 74.9 ml RA : 14.8 ml/m2 LA vol index: 38.5 ml/m2 IVC diam: 1.7 cm RVD1 (basal): 3.5 cm RVD2 (mid): 2.9 cm TAPSE: 2.7 cm Doppler Measurements & Calculations Ao V2 max: 152.9 cm/sec LVOT Max Luis: 132.6 cm/sec Ao V2 mean: 98.0 cm/sec LV V1 max P.0 mmHg Ao max P.4 mmHg LV V1 VTI: 30.7 cm Ao mean P.3 mmHg CRISTOFER(I,D): 3.2 cm2 Ao V2 VTI: 30.6 cm CRISTOFER(V,D): 2.8 cm2 sev ratio: 1.0 CRISTOFER indexed to BSA (cm^2/m^2): 1.6 MV E max luis: 72.7 cm/sec PA V2 max: 102.2 cm/sec MV A max luis: 115.5 cm/sec PA V2 mean: 73.1 cm/sec MV E/A: 0.63 PA mean P.3 mmHg Med Peak E' Luis: 5.2 cm/sec PA pr(Accel): 37.9 mmHg E/E' med: 13.9 Lat Peak E' Luis: 4.8 cm/sec E/E' lat: 15.0 E/e' average: 14.5 MV dec time: 0.26 sec SV(LVOT): 97.6 ml Reading Physician:03:58 PM
== END ==
PROVIDERS: PCP Family Medicine; Referring Provider Family Medicine; Visit Provider Family Medicine
DX: I31.39 Other pericardial effusion (noninflammatory) (principal)
CPT/HCPCS: 93306